=== PATIENT | female | born 1940 | race Caucasian/White ===

== ENCOUNTER 2020-01-10 12:26 | Outpatient (REF) | payer MEDICARE, SELFPAY ==
[2020-01-10 14:27] LABS: Anion Gap 13 (12-20); Blood Urea Nitrogen 13 mg/dL (9-16); Carbon Dioxide 25 mmol/L (22-29); Chloride 105 mmol/L (96-108); Estimated Glomerular Filt Rate 46; Potassium 4.7 mmol/l (3.3-5.1); Sodium 138 mmol/L (135-145)
[2020-01-10 14:44] LABS: Free T4 (Free Thyroxine) 0.92 ng/dL (0.71-1.85); Thyroid Stimulating Hormone 1.15 uIU/mL (0.32-4.0)
== END 2020-01-10 12:27 | disposition home or self-care (01) ==
LOC: HO.10HDL 12:26
PROVIDERS: Visit Provider Family Medicine
DX: E03.9 Hypothyroidism, unspecified (principal); I10 Essential (primary) hypertension
CPT/HCPCS: 80051; 82565; 84439; 84443; 84520

== ENCOUNTER 2020-01-28 16:17 | Outpatient (REF) | payer MEDICARE, SELFPAY ==
--- NOTE | 2020-01-28 16:23 | MM_ITS ---
EXAMINATION: MM SCREENING DIGITAL BREAST TOMOSYNTHESIS, BILATERAL CLINICAL INFORMATION: Screening. Asymptomatic. The lifetime risk of breast cancer based on the Tyrer-Cuzick Model is 6%. COMPARISON: Mammography: 08/03/2018, 07/20/2017, 07/16/2016 TECHNIQUE: Digital breast tomosynthesis is performed in both the craniocaudal and mediolateral oblique views along with computer-aided detection (CAD). Synthesized 2D images are generated from the tomosynthesis. FINDINGS: The breasts are heterogeneously dense, which may obscure small masses (ACR BI-RADS breast composition Category c). Breast tissue composition borders on average fibroglandular. There is fine fibronodular parenchymal pattern similar to prior studies. There is no developing density or interval mass or architectural abnormality. No abnormal calcifications. The axilla and skin contours are unremarkable. No significant changes. MM/MM tomosynthesis screening BI IMPRESSION: No significant changes from prior studies. ASSESSMENT: BI-RADS 1: Negative RECOMMENDATION: Routine annual mammography screening. This patient's information was entered into a reminder system with a target due date for their next mammogram.
== END 2020-01-28 16:18 | disposition home or self-care (01) ==
LOC: HO.MAMMO 16:17
PROVIDERS: PCP Family Medicine; Visit Provider Family Medicine
DX: Z12.31 Encounter for screening mammogram for malignant neoplasm of breast (principal)
CPT/HCPCS: 77063; 77067

== ENCOUNTER 2020-07-31 11:53 | Outpatient (REF) | payer MEDICARE, SELFPAY ==
[2020-07-31 13:49] LABS: Anion Gap 12 (12-20); Blood Urea Nitrogen 11 mg/dL (9-16); Carbon Dioxide 25 mmol/L (22-29); Chloride 109 mmol/L (96-108); Estimated Glomerular Filt Rate 50; Potassium 4.8 mmol/L (3.3-5.1); Sodium 141 mmol/L (135-145)
[2020-07-31 14:11] LABS: Free T4 (Free Thyroxine) 1.07 ng/dL (0.71-1.85)
== END 2020-07-31 11:54 | disposition home or self-care (01) ==
LOC: HO.10HDL 11:53
PROVIDERS: PCP Family Medicine; Visit Provider Family Medicine
DX: I10 Essential (primary) hypertension (principal); E03.9 Hypothyroidism, unspecified
CPT/HCPCS: 36415; 80051; 82565; 84439; 84520

== ENCOUNTER 2021-02-05 15:18 | Outpatient (REF) | payer MEDICARE, SELFPAY ==
--- NOTE | ~2021-02-05 | MM_ITS ---
EXAMINATION: MM SCREENING DIGITAL BREAST TOMOSYNTHESIS, BILATERAL CLINICAL INFORMATION: Screening. Asymptomatic. The lifetime risk of breast cancer based on the Tyrer-Cuzick Model is 4.9%. COMPARISON: Mammography: January 28, 2020 and studies dating back to December 21, 2012 TECHNIQUE: Digital breast tomosynthesis is performed in both the craniocaudal and mediolateral oblique views along with computer-aided detection (CAD). Synthesized 2D images are generated from the tomosynthesis. FINDINGS: The breasts are heterogeneously dense, which may obscure small masses (ACR BI-RADS breast composition Category c). There are no significant masses, abnormal calcifications, or other abnormalities. MM/MM tomosynthesis screening BI IMPRESSION: There are no significant changes from prior study. ASSESSMENT: BI-RADS 1: Negative RECOMMENDATION: Routine annual mammography screening. This patient's information was entered into a reminder system with a target due date for their next mammogram.
== END 2021-02-05 15:19 | disposition home or self-care (01) ==
LOC: HO.MAMMO 15:18
PROVIDERS: Visit Provider Family Medicine
DX: Z12.31 Encounter for screening mammogram for malignant neoplasm of breast (principal)
CPT/HCPCS: 77063; 77067

== ENCOUNTER 2021-02-10 11:49 | Outpatient (REF) | payer MEDICARE, SELFPAY ==
[2021-02-10 14:18] LABS: Anion Gap 13 (12-20); Blood Urea Nitrogen 13 mg/dL (9-16); Carbon Dioxide 26 mmol/L (22-29); Chloride 105 mmol/L (96-108); Estimated Glomerular Filt Rate 51; Potassium 4.5 mmol/L (3.3-5.1); Sodium 139 mmol/L (135-145)
[2021-02-10 14:42] LABS: Free T4 (Free Thyroxine) 0.96 ng/dL (0.71-1.85)
== END 2021-02-10 11:50 | disposition home or self-care (01) ==
LOC: HO.10HDL 11:49
PROVIDERS: Family Medicine; Visit Provider Student in an Organized Health Care Education/Training Program
DX: I10 Essential (primary) hypertension (principal)
CPT/HCPCS: 36415; 80051; 82565; 84439; 84520

== ENCOUNTER 2021-02-11 13:15 | Outpatient (REF) | payer MEDICARE, SELFPAY ==
--- NOTE | ~2021-02-11 | US_ITS ---
EXAMINATION: US RETROPERITONEAL COMPLETE (RENAL) CLINICAL INFORMATION: Acute right lower quadrant pain. Hematuria. COMPARISON: None TECHNIQUE: Real-time imaging of the kidneys and bladder. FINDINGS: RIGHT KIDNEY: 9.8 x 5.6 x 5.4 cm (SAG x AP x TRV). The kidney is normal in size, contour, and echogenicity. Renal cortical thickness is normal. No renal calculi or focal parenchymal lesions. There is mild to moderate hydronephrosis. No hydroureter identified. LEFT KIDNEY: 10.9 x 4.9 x 5.4 cm (SAG x AP x TRV). The kidney is normal in size, contour, and echogenicity. Renal cortical thickness is normal. No renal calculi or focal solid parenchymal lesions.. Within the upper pole laterally there is a 7 mm cyst present. BLADDER: Well distended and normal. Bilateral ureteral jets are demonstrated. Prevoid bladder volume is 226 mL. Postvoid bladder volume is 10.0 mL. US/US retroperitoneal comp IMPRESSION: Mild to moderate right hydronephrosis and mild prominence of the left upper collecting system without renal calculi identified. Bilateral ureteral jets are identified within the urinary bladder. No significant post void residual..
== END 2021-02-11 13:16 | disposition home or self-care (01) ==
LOC: HO.US 13:15
PROVIDERS: PCP Family Medicine; Visit Provider Family Medicine
DX: R10.31 Right lower quadrant pain (principal); R31.9 Hematuria, unspecified
CPT/HCPCS: 76770

== ENCOUNTER 2021-09-07 12:18 | Outpatient (REF) | payer MEDICARE, SELFPAY ==
[2021-09-07 14:35] LABS: Anion Gap 11 (12-20); Blood Urea Nitrogen 15 mg/dL (9-16); Carbon Dioxide 26 mmol/L (22-29); Chloride 107 mmol/L (96-108); Estimated Glomerular Filt Rate 48; Potassium 4.7 mmol/L (3.3-5.1); Sodium 139 mmol/L (135-145)
[2021-09-07 14:51] LABS: Free T4 (Free Thyroxine) 0.95 ng/dL (0.71-1.85)
== END 2021-09-07 12:19 | disposition home or self-care (01) ==
LOC: HO.10HDL 12:18
PROVIDERS: Visit Provider Family Medicine
DX: I10 Essential (primary) hypertension (principal); E03.9 Hypothyroidism, unspecified
CPT/HCPCS: 36415; 80051; 82565; 84439; 84520

== ENCOUNTER 2022-02-11 13:06 | Outpatient (REF) | payer MEDICARE, SELFPAY ==
--- NOTE | ~2022-02-11 | MM_ITS ---
EXAMINATION: MM SCREENING DIGITAL BREAST TOMOSYNTHESIS, BILATERAL CLINICAL INFORMATION: Screening. Asymptomatic. The lifetime risk of breast cancer based on the Tyrer-Cuzick Model is 4.5%. COMPARISON: Mammography: February 05, 2021 and studies dating back to June 25, 2015 TECHNIQUE: Digital breast tomosynthesis is performed in both the craniocaudal and mediolateral oblique views along with computer-aided detection (CAD). Synthesized 2D images are generated from the tomosynthesis. FINDINGS: The breasts are extremely dense, which lowers the sensitivity of mammography (ACR BI-RADS breast composition Category d). There are no significant masses, abnormal calcifications, or other abnormalities. MM/MM tomosynthesis screening BI IMPRESSION: No significant changes from prior exam. ASSESSMENT: BI-RADS 1: Negative RECOMMENDATION: Routine annual mammography screening. This patient's information was entered into a reminder system with a target due date for their next mammogram.
== END 2022-02-11 13:07 | disposition home or self-care (01) ==
LOC: HO.MAMMO 13:06
PROVIDERS: PCP Family Medicine; Visit Provider Family Medicine
DX: Z12.31 Encounter for screening mammogram for malignant neoplasm of breast (principal)
CPT/HCPCS: 77063; 77067

== ENCOUNTER 2022-03-26 11:35 | Outpatient (REF) | payer MEDICARE, SELFPAY ==
[2022-03-26 13:40] LABS: MANUAL DIFF FLAG NO
[2022-03-26 13:45] LABS: Basophils Absolute Auto 0.1 X10*3/uL (0.0-0.2); Basophils Percent Auto 1.4 % (0-2); Eosinophils Absolute Auto 0.1 X10*3/uL (0.0-0.4); Eosinophils Percent Auto 2.1 % (0-4); Hematocrit 41.9 % (37.0-47.0); Hemoglobin 13.6 g/dl (12.0-16.0); Imm Gran Abs Auto 0.01 X10*3/uL (0.00-0.03); Imm Gran Pct Auto 0.2 % (0.0-0.4); Lymphocytes Absolute Auto 1.4 X10*3/uL (1.2-4.9); Lymphocytes Percent Auto 26.5 % (20-40); Mean Corpuscular HGB Conc 32.5 g/dl (31.0-35.0); Mean Corpuscular Hemoglobin 28.7 pg (27.0-33.0); Mean Corpuscular Volume 88.4 fL (80.0-98.0); Mean Platelet Volume 11.7 fL (9.4-12.3); Monocytes Absolute Auto 0.6 X10*3/uL (0.1-1.2); Monocytes Percent Auto 11.7 % (2-11); Neutrophils Percent Auto 58.1 % (45-73); Platelet Count 303 X10*3/uL (160-400); Red Blood Count 4.74 X10*6/uL (4.20-5.50); Red Cell Distribution Width 12.8 % (11.0-16.0); White Blood Count 5.1 X10*3/uL (4.8-10.8)
[2022-03-26 14:32] LABS: Anion Gap 13 (12-20); Blood Urea Nitrogen 15 mg/dL (9-16); Carbon Dioxide 23 mmol/L (22-29); Chloride 109 mmol/L (96-108); Estimated Glomerular Filt Rate 49; Potassium 4.6 mmol/L (3.3-5.1); Sodium 140 mmol/L (135-145)
[2022-03-26 14:50] LABS: Free T4 (Free Thyroxine) 1.01 ng/dL (0.71-1.85)
== END 2022-03-26 11:36 | disposition home or self-care (01) ==
LOC: HO.10HDL 11:35
PROVIDERS: Visit Provider Family Medicine
DX: I10 Essential (primary) hypertension (principal); E03.9 Hypothyroidism, unspecified; R53.83 Other fatigue
CPT/HCPCS: 36415; 80051; 82565; 84439; 84520; 85025

== ENCOUNTER 2022-11-15 09:42 | Outpatient (REF) | payer MEDICARE, SELFPAY ==
[2022-11-15 11:20] LABS: Anion Gap 10 (12-20); Blood Urea Nitrogen 13 mg/dL (9-16); Carbon Dioxide 25 mmol/L (22-29); Chloride 109 mmol/L (96-108); Estimated Glomerular Filt Rate 45; Potassium 4.1 mmol/L (3.3-5.1); Sodium 140 mmol/L (135-145)
[2022-11-15 11:25] LABS: Free T4 (Free Thyroxine) 0.97 ng/dL (0.71-1.85)
== END 2022-11-15 09:43 | disposition home or self-care (01) ==
LOC: HO.10HDL 09:42
PROVIDERS: Visit Provider Family Medicine
DX: I10 Essential (primary) hypertension (principal); E03.9 Hypothyroidism, unspecified
CPT/HCPCS: 36415; 80051; 82565; 84439; 84520

== ENCOUNTER 2023-01-14 12:48 | Outpatient (REF) | payer MEDICARE, SELFPAY ==
--- NOTE | ~2023-01-14 | XR_ITS ---
EXAMINATION: XR TIBIA AND FIBULA, RIGHT CLINICAL INFORMATION: Right flank pain. COMPARISON: None available. TECHNIQUE: AP and lateral views of the right tibia and fibula were obtained. FINDINGS: Bony alignment and mineralization are normal. At the right knee, there is very mild asymmetric narrowing of the medial joint space compartment, with peripheral osteophyte formation. There is peripheral osteophyte formation of the patellofemoral compartment. No right knee joint effusion is seen. A Karen-Stieda fragment is noted adjacent to the medial femoral condyle, suggesting a remote MCL injury. The ankle mortise is intact. There is no fracture, dislocation or joint effusion. There is a tiny accessory ossification center seen adjacent to the lateral malleolus. No focal soft tissue swelling, gas or foreign body is seen. XR/XR tibia fibula RT 2V IMPRESSION: 1. 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 2. No fracture, dislocation or right knee or ankle joint effusion is noted.
== END 2023-01-14 12:49 | disposition home or self-care (01) ==
LOC: HO.XRAY 12:48
PROVIDERS: PCP Family Medicine; Visit Provider Family Medicine
DX: M79.604 Pain in right leg (principal)
CPT/HCPCS: 73590

== ENCOUNTER 2023-02-09 14:56 | Outpatient (AMB) | payer MEDICARE, SELFPAY ==
--- NOTE | 2023-02-09 15:09 | A.OFFVIS_ITS ---
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 Patient reports pain in the posterior aspect of knee that will radiate down to her leg to her ankle and bottom of her foot. Denies injury. Patient was seen by her PCP who ordered xrays and referred to orthopedics. Hx of right knee meniscus repair at [facility]. 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 She states she has pain in the posterior aspect of her knee which radiates down to ankle and bottom of her foot. Her pain is aggravated with ambulation, standing and at night when laying at bed. She was seen by her PCP who referred her to our office. She has not had any previous injury. She has a history of right knee meniscus repair at [facility]. [facility] Surgical History (Updated 02/09/23 @ 15:14 by BARBARA Kern) History of lateral meniscus repair of right knee Hx of laparoscopy Hx of eye surgery Social History (Updated 02/09/23 @ 15:13 by BARBARA Kern) Patient Tobacco Use Status: Former Tobacco user Current occupational status: unemployed Review of Systems Const All systems reviewed & are unremarkable except as noted in HPI and below Physical Exam Vital Signs: BMI result Body Mass Index 29.0 Const General: cooperative, healthy appearing, comfortable, no acute distress, well developed and alert Orientation/consciousness: patient oriented x3 HEENT Head: Yes normal to inspection, Yes normocephalic and Yes atraumatic Eyes General: appearance normal, both eyes and all related structures Resp Effort & Inspection: normal respiratory effort and able to speak in complete sentences Cardio Rate: regular rate Peripheral pulses: Peripheral pulses 2+ throughout GI Palpation (GI): Soft to palpation Skin Lesions: no lesions Rashes: no rashes Neuro General: patient oriented x3 Extrem Other: Right foot: Normal to inspection. She has some tenderness over the plantar fascia. She has no pain around the medial or lateral aspect of knee. she has full rom of knee. No pain along the calf or anterior tibia. NVI. Assessment & Plan Assessment & Plan (1) Peroneal tendonitis of right lower extremity: Code(s): M76.71 - Peroneal tendinitis, right leg (2) Plantar fasciitis of right foot: Code(s): M72.2 - Plantar fascial fibromatosis Plan She was referred to physical therapy to work on ROM, gentle strengthening and heel quad stretching along with posterior chain conditioning exercises. I did show her some exercises in the office as well and gave her a home exercises program. If symptoms do not improve she will see us back. Orders: Orders PT Evaluation and Treatment 02/09/23 M72.2 - Plantar fascial fibromatosis, M76.71 - Peroneal tendinitis, right leg Patient Instructions: Scribed for Zabrina Hodges PA-C, by Eduardo Ashby medical donation professional, on 02/09/2023 at 3:00 PM EST. I, Zabrina Hodges PA-C, have personally reviewed and agree with the information entered by the scribe. Coding Level of Care Code New Pt Level 3 (57734) Diagnoses Peroneal tendonitis of right lower extremity M76.71 Plantar fasciitis of right foot M72.2
[2023-02-09 15:12] VITALS: BMI 29.0
== END 2023-02-09 15:42 | disposition home or self-care (01) ==
PROVIDERS: PCP Family Medicine; Visit Provider Physician Assistant
DX: M76.71 Peroneal tendinitis, right leg (principal); M72.2 Plantar fascial fibromatosis
CPT/HCPCS: 99203

== ENCOUNTER → 2023-02-09 14:56 | Outpatient (BNVA) | payer MEDICARE, SELFPAY | PROVIDERS: PCP Family Medicine; Visit Provider Physician Assistant | DX: M76.71 Peroneal tendinitis, right leg (principal); M72.2 Plantar fascial fibromatosis | CPT/HCPCS: 99202 ==

== ENCOUNTER 2023-03-03 13:04 | Outpatient (REF) | payer MEDICARE, SELFPAY | END 2023-03-03 13:05 | disposition home or self-care (01) | LOC: HO.MAMMO 13:04 | PROVIDERS: PCP Family Medicine; Visit Provider Family Medicine | DX: Z12.31 Encounter for screening mammogram for malignant neoplasm of breast (principal) | CPT/HCPCS: 77063; 77067 ==

== ENCOUNTER → 2023-03-03 13:15 | Outpatient (BNV) | payer MEDICARE, SELFPAY | PROVIDERS: PCP Family Medicine; Visit Provider Radiology Diagnostic Radiology | DX: Z12.31 Encounter for screening mammogram for malignant neoplasm of breast (principal) | CPT/HCPCS: 77063; 77067 ==

== ENCOUNTER 2023-03-11 10:25 | Outpatient (REF) | payer MEDICARE, SELFPAY ==
--- NOTE | ~2023-03-11 | MM_ITS ---
EXAMINATION: MM DIAGNOSTIC DIGITAL MAMMOGRAPHY, RIGHT CLINICAL INFORMATION: Follow-up diagnostic to evaluate one view asymmetries right breast medial CC projection, and upper outer MLO projection. COMPARISON: Mammography: Screening mammography 02/11/2022. TECHNIQUE: Digital mammography is performed in the following views: Full-field 3-D right mediolateral view, 3-D spot compression right MLO and CC views. FINDINGS: The breasts are heterogeneously dense, which may obscure small masses (ACR BI-RADS breast composition Category c). Focal asymmetries do not persist on spot compression views, and are consistent with superimposition artifact related to overlapping normal fibroglandular tissues. There are no suspicious masses, suspicious grouped calcifications, or areas of architectural distortion in the right breast. The parenchymal pattern is stable from prior exams. Results are provided to the patient at time of visit by the technologist. MM/MM added views RT IMPRESSION: No persistent findings suspicious for malignancy. Recommend the patient resume annual screening mammography to include both breasts. ASSESSMENT: BI-RADS BI-RADS 1 - Negative RECOMMENDATION: 1 year F/U This patient's information was entered into a reminder system with a target due date for their next mammogram.
== END 2023-03-11 10:26 | disposition home or self-care (01) ==
LOC: HO.MAMMO 10:25
PROVIDERS: PCP Family Medicine; Visit Provider Family Medicine
DX: N64.89 Other specified disorders of breast (principal)
CPT/HCPCS: 77065

== ENCOUNTER → 2023-03-11 10:30 | Outpatient (BNV) | payer MEDICARE, SELFPAY | PROVIDERS: PCP Family Medicine; Visit Provider Radiology Diagnostic Radiology | DX: R92.8 Other abnormal and inconclusive findings on diagnostic imaging of breast (principal) | CPT/HCPCS: 77065 ==

== ENCOUNTER 2023-05-04 11:31 | Outpatient (REF) | payer MEDICARE, SELFPAY ==
[2023-05-04 14:10] LABS: Anion Gap 8 (12-20); Blood Urea Nitrogen 14 mg/dL (9-16); Carbon Dioxide 28 mmol/L (22-29); Chloride 108 mmol/L (96-108); Estimated Glomerular Filt Rate 53; Potassium 4.3 mmol/L (3.3-5.1); Sodium 140 mmol/L (135-145)
[2023-05-05 09:15] LABS: Free T4 (Free Thyroxine) 0.91 ng/dL (0.71-1.85)
== END 2023-05-04 11:32 | disposition home or self-care (01) ==
LOC: HO.10HDL 11:31
PROVIDERS: Visit Provider Family Medicine
DX: I10 Essential (primary) hypertension (principal); E03.9 Hypothyroidism, unspecified
CPT/HCPCS: 36415; 80051; 82565; 82746; 84439; 84443; 84520

== ENCOUNTER 2023-12-06 10:20 | Outpatient (REF) | payer MEDICARE, SELFPAY ==
[2023-12-06 11:34] LABS: Alanine Aminotransferase 23 U/L (0-31); Anion Gap 10 (12-20); Aspartate Amino Transferase 20 U/L (5-31); Blood Urea Nitrogen 14 mg/dL (9-16); Carbon Dioxide 28 mmol/L (22-29); Chloride 109 mmol/L (96-108); Estimated Glomerular Filt Rate 48; Potassium 4.2 mmol/L (3.3-5.1); Sodium 143 mmol/L (135-145)
== END 2023-12-06 10:21 | disposition home or self-care (01) ==
LOC: HO.10HDL 10:20
PROVIDERS: Visit Provider Family Medicine
DX: I10 Essential (primary) hypertension (principal); E78.00 Pure hypercholesterolemia, unspecified; Z79.899 Other long term (current) drug therapy
CPT/HCPCS: 36415; 80051; 82550; 82565; 84450; 84460; 84520

== ENCOUNTER 2024-03-08 14:24 | Outpatient (REF) | payer MEDICARE, SELFPAY ==
--- NOTE | ~2024-03-08 | MM_ITS ---
EXAMINATION: MM SCREENING DIGITAL BREAST TOMOSYNTHESIS, BILATERAL CLINICAL INFORMATION: Screening. Asymptomatic. COMPARISON: Mammography: Comparison is made with available priors TECHNIQUE: Digital breast mammography with tomosynthesis is performed in both the craniocaudal and mediolateral oblique views along with computer-aided detection (CAD). FINDINGS: The breasts are heterogeneously dense, which may obscure small masses (ACR BI-RADS breast composition Category c). Left: Asymmetry superior breast middle depth on MLO view. No suspicious calcifications or other abnormal findings. Right: Asymmetry superior breast posterior depth on MLO view incompletely evaluated on today's MLO view. No suspicious calcifications or abnormal findings. MM/MM tomosynthesis screening BI IMPRESSION: Left: Asymmetry in the superior left breast on MLO view. Additional imaging and ultrasound recommended at this time. Right: Asymmetry superior breast far posterior depth incompletely evaluated on today's MLO view. Recommend full field additional MLO view with naomi synthesis and X CCL full field view with naomi synthesis for further evaluation as well as right breast ultrasound. ASSESSMENT: BI-RADS BI-RADS 0 - Incomplete: Needs additional Imaging. RECOMMENDATION: 1. Additional views of the bilateral breasts 2. Targeted ultrasound if warranted after review of the additional views. 3. Radiology department staff will contact the patient for additional imaging. Additional Imaging required This examination should not preclude the clinical evaluation of a suspicious palpable abnormality. This patient's information was entered into a reminder system with a target due date for their next mammogram. Electronically signed by: Aurora Isaacs DO 03/14/2024 08:28 AM [facility]
== END 2024-03-08 14:25 | disposition home or self-care (01) ==
LOC: HO.MAMMO 14:24
PROVIDERS: PCP Family Medicine; Visit Provider Family Medicine
DX: Z12.31 Encounter for screening mammogram for malignant neoplasm of breast (principal)
CPT/HCPCS: 77063; 77067

== ENCOUNTER → 2024-03-08 14:45 | Outpatient (BNV) | payer MEDICARE, SELFPAY | PROVIDERS: PCP Family Medicine; Visit Provider Internal Medicine | DX: Z12.31 Encounter for screening mammogram for malignant neoplasm of breast (principal) | CPT/HCPCS: 77063; 77067 ==

== ENCOUNTER 2024-04-19 11:41 | Outpatient (REF) | payer MEDICARE, SELFPAY ==
--- NOTE | ~2024-04-19 | MM_ITS ---
EXAMINATION: MM DIAGNOSTIC DIGITAL BREAST TOMOSYNTHESIS, BILATERAL Bilateral Limited ultrasound. CLINICAL INFORMATION: Call back from screening for bilateral asymmetries. COMPARISON: Mammography: Comparison is made with relevant prior exams. TECHNIQUE: Digital breast mammography with tomosynthesis is performed in both the craniocaudal and mediolateral oblique views along with computer-aided detection (CAD). Bilateral Limited ultrasound. FINDINGS: There are scattered areas of fibroglandular density (ACR BI-RADS breast composition Category b). Left: Previously seen asymmetry in the superior left breast on MLO view does not persist on additional imaging projections. No suspicious calcifications or masses or other abnormal findings. Targeted color Doppler ultrasound scanning in the superior left breast upper outer quadrant and upper central breast demonstrates normal fibroglandular breast tissue. Right: There is a persistent mass with questioned distortion in the upper outer breast far posterior depth. No suspicious calcifications or other abnormal findings. Targeted color Doppler ultrasound scanning in the upper outer quadrant from 8-12 o'clock demonstrates normal fibroglandular breast tissue. Results are provided to the patient at time of visit by the technologist. MM/MM tomosynthesis added view BI IMPRESSION: Left: Negative. Right: Persistent mass in the upper outer right breast far posterior depth with questioned distortion without sonographic correlate. Recommend stereotactic core needle biopsy at this time for confirmation. The findings and recommendations were discussed with the patient the procedure will be scheduled. ASSESSMENT: BI-RADS BI-RADS 4 - Suspicious finding RECOMMENDATION: Biopsy recommended This patient's information was entered into a reminder system with a target due date for their next mammogram. Electronically signed by: Aurora Isaacs DO 04/19/2024 01:41 PM [facility]
== END 2024-04-19 11:42 | disposition home or self-care (01) ==
LOC: HO.MAMMO 11:41
PROVIDERS: PCP Physician Assistant; Visit Provider Family Medicine
DX: N64.89 Other specified disorders of breast (principal)
CPT/HCPCS: 76642; 77062; 77066

== ENCOUNTER → 2024-04-19 12:00 | Outpatient (BNV) | payer MEDICARE, SELFPAY | PROVIDERS: PCP Physician Assistant; Visit Provider Internal Medicine | DX: R92.8 Other abnormal and inconclusive findings on diagnostic imaging of breast (principal) | CPT/HCPCS: 76642; 77066; G0279 ==

== ENCOUNTER 2024-05-17 09:47 | Outpatient (REF) | payer MEDICARE, SELFPAY ==
--- NOTE | ~2024-05-17 | MM_ITS ---
EXAMINATION: STEREOTACTICALLY-GUIDED RIGHT BREAST BIOPSY CLINICAL INFORMATION: Irregular focal asymmetry with distortion in the upper outer right breast posterior depth. COMPARISON: [facility] on PACS. INFORMED CONSENT: After the details of the procedure, as well as the risks (including, but not limited to, bleeding, hematoma formation, and infection), benefits and alternatives (including doing nothing, short-interval follow up, and surgery) to the procedure were explained to the patient in detail and all of her questions were answered, informed written consent was obtained. TECHNIQUE/FINDINGS: A timeout was performed. The lesion intended for biopsy was identified stereotactically and targeted. The skin of the right breast was then cleansed with sterile solution. Using stereotactic guidance, aseptic technique, and 1% lidocaine with and without epinephrine for local anesthesia, a total of 10 cores were obtained through the targeted area with a 9-gauge vacuum-assisted Eviva core biopsy device from a superior approach. No specimen radiograph was needed. At the completion of tissue sampling, a single mini Cork-shaped metallic clip was deposited at the biopsy site. Adequate sampling was achieved. The postprocedure 2-view direct digital mammogram reveals satisfactory positioning of the biopsy clip. The patient tolerated the procedure well and, after assuring adequate hemostasis, was discharged in good condition after reviewing postbiopsy breast care instructions. Final pathology results are pending. MM/MM stereotactic biopsy RT IMPRESSION: 1. Uncomplicated stereotactically-guided core biopsy of the right breast. The 2-view direct digital postprocedure mammogram reveals satisfactory positioning of the biopsy clip. 2. Final pathology results are pending. A separate report with final recommendations will be issued once these results are made available. Electronically signed by: Aurora Isaacs DO 05/17/2024 12:39 PM EDT
[2024-05-17] MEDS: Lidocaine HCl 1 % 20 ML VIAL 5 ML SUBCUT (11:56)
[2024-05-17] MEDS: Lidocaine HCl 1%/Epi 1:100,000 10 ML VIAL 18 ML SUBCUT (11:57)
[2024-05-17] MEDS: Sodium Bicarbonate 8.4% 50 MEQ/50 ML VIAL SUBCUT (11:58)
== END 2024-05-17 09:48 | disposition home or self-care (01) ==
LOC: HO.MAMMO 09:47
PROVIDERS: PCP Family Medicine; Visit Provider Family Medicine
DX: C50.911 Malignant neoplasm of unspecified site of right female breast (principal); R92.8 Other abnormal and inconclusive findings on diagnostic imaging of breast; N64.89 Other specified disorders of breast
CPT/HCPCS: 19081; 88305; 88342; 88360; A4648; J2003; J2004

== ENCOUNTER → 2024-05-17 10:00 | Outpatient (BNV) | payer MEDICARE, SELFPAY | PROVIDERS: PCP Family Medicine; Visit Provider Internal Medicine | DX: N63.11 Unspecified lump in the right breast, upper outer quadrant (principal) | CPT/HCPCS: 19081; 77065 ==

== ENCOUNTER → 2024-06-01 13:02 | Outpatient (BNV) | payer MEDICARE, SELFPAY | PROVIDERS: PCP Family Medicine; Referring Provider Family Medicine; Visit Provider Internal Medicine Medical Oncology | DX: C50.411 Malignant neoplasm of upper-outer quadrant of right female breast (principal) | CPT/HCPCS: 99204 ==

== ENCOUNTER 2024-06-07 10:27 | Outpatient (AMB) | payer MEDICARE, SELFPAY ==
--- NOTE | 2024-06-07 10:37 | A.OFFVIS_ITS ---
Vital Signs 06/07/24 10:45 Height 5 ft 7 in Weight 187 lb BMI 29.3 BP 189/84 H Blood Pressure Location Lt brachial Position Sitting Pulse 82 Intake Visit Reasons: right breast CA (Dr Eldridge) Intake Note: Patient is seen in office for treatment of right breast IDC. 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 She was noted to have a asymmetry in the right breast at the superior posterior depth on the initial screening mammogram performed on 03/08/2024. Subsequent additional images performed on 04/19/2024 noted a persistent mass with questioned distortion in the upper outer breast. This was felt to be suspicious for malignancy and stereotactic core biopsy recommended. A stereotactic core biopsy performed on 05/17/2024 was positive for an invasive ductal carcinoma, grade 1, ER/AR positive, HER2 Aryan negative, proliferation index low. She presents today to discuss surgical options. She denies a previous history of breast problems or breast surgery. Her family history is significant for her mother developing breast cancer when she was in her 50s. She underwent a radical mastectomy but subsequently of metastatic disease. She is . Menarche was at age 17 and menopause at age 52. [facility] Surgical History History of lateral meniscus repair of right knee Hx of laparoscopy Hx of eye surgery Family History Mother Breast cancer, Onset Age: 55 Bone cancer Father Colon cancer Cirrhosis of liver Brother Lung cancer Skin cancer Social History Household Members: Friend(s) Housing: House Are you a primary customer care assistant to a significant other at home: Yes Do you presently have visiting nurse or other home services: No Patient Tobacco Use Status: Former Tobacco user Second Hand Smoke Exposure: No service: No Current occupational status: retired Female Reproductive History Menstrual Age of Menarche: 17 Age of menopause: 52 Total pregnancies: 0 Review of Systems Const All systems reviewed & are unremarkable except as noted in HPI and below Physical Exam Vital Signs: Last Vital Signs Pulse 82 06/07/24 10:45 BP 189/84 H 06/07/24 10:45 BMI result Body Mass Index 29.3 Const General: cooperative and no acute distress Nutritional Appearance: well nourished Orientation/consciousness: patient oriented x3 Limitations: no limitations HEENT Head: Yes normocephalic and Yes atraumatic Ears: hearing grossly normal bilaterally Chest Other: Left breast: No skin change, no nipple retraction, no nipple discharge, no palpable mass, no enlarged lymph nodes. Right breast: No skin change, no nipple retraction, no nipple discharge, faintly palpable density in the upper outer quadrant with the associated needle biopsy site, tender palpable node in the right axilla Resp Effort & Inspection: normal respiratory effort, no audible wheezes, no cough and no respiratory distress Cardio Jugular venous distension: no JVD GI Inspection: Yes normal to inspection Skin Other: Warm, dry, no rash Neuro General: patient oriented x3 Extrem General: Yes no clubbing, cyanosis or edema Assessment & Plan Assessment & Plan (1) Invasive ductal carcinoma of right breast: Code(s): C50.911 - Malignant neoplasm of unspecified site of right female breast Category: Medical Plan 84-year-old female patient presenting with a newly diagnosed invasive ductal carcinoma of the upper outer quadrant right breast presenting status post stereotactic guided core biopsy. Examination does reveal some faint density in the upper outer quadrant which may be related to the previous biopsy. There is also a palpable tender node in the right axilla, possibly reactive. We discussed the surgical options. Based on the mammographic findings, I do believe she would be a good candidate for breast conservation surgery and after discussion of the procedure, risks and alternatives, she consents to a right breast lumpectomy with localizer, right axillary sentinel node biopsy. She will be scheduled as a short-stay surgery. Coding Level of Care Code New Pt Level 4 (12478) Diagnoses Invasive ductal carcinoma of right breast C50.911
[2024-06-07 10:45] VITALS: BP 189/84; PULSE 82; BMI 29.3
== END 2024-06-07 11:04 | disposition home or self-care (01) ==
LOC: HO.HGS 10:28
PROVIDERS: PCP Family Medicine; Visit Provider Surgery
DX: C50.911 Malignant neoplasm of unspecified site of right female breast (principal)
CPT/HCPCS: 99204

== ENCOUNTER → 2024-06-07 10:27 | Outpatient (BNVA) | payer MEDICARE, SELFPAY | PROVIDERS: PCP Family Medicine; Visit Provider Surgery | DX: C50.411 Malignant neoplasm of upper-outer quadrant of right female breast (principal) | CPT/HCPCS: 99202 ==

== ENCOUNTER 2024-06-14 09:58 | Outpatient (REF) | payer MEDICARE, SELFPAY ==
--- NOTE | ~2024-06-14 | MM_ITS ---
EXAMINATION: MM MAMMOGRAM GUIDED RFID LOCALIZATION BREAST, RIGHT CLINICAL INFORMATION: Right breast recently biopsied invasive ductal carcinoma Here for tag localization. COMPARISON: [facility] on PACS. TECHNIQUE NEEDLE LOC: Proper informed consent is obtained from the patient after discussion of the procedure, potential risks and complications, and alternatives including declining the procedure today. Patient was given an opportunity for questions. The patient appeared to understand. The patient consented to the procedure and signed the consent form. GUIDANCE: Digital mammography. APPROACH: Superior. TARGET: Upper outer clip. ANESTHESIA: carbonated lidocaine 1%: LOCALIZATION SYSTEM: [employer] LOCallizer Wire-Free Guidance System with 12g needle applicator. RADIOFREQUENCY TAG: ID # [id number] . RF Tag ID confirmed with LOCalizer Guidance System prior to placement. The skin is prepped and local anesthesia administered. The needle is positioned and RFID tag deployed. Final images demonstrate the LOCalizer RF tag to reside adjacent to the marker clip in the upper outer breast. The patient tolerated the procedure well and had no immediate complications. Dressing placed and home instructions reviewed. MM/MM RF Tag device RT IMPRESSION: -Status post right breast RFID localization. Electronically signed by: Aurora Isaacs DO 06/14/2024 02:31 PM EDT
[2024-06-14] MEDS: Sodium Bicarbonate 8.4% 50 MEQ/50 ML VIAL SUBCUT (11:10)
[2024-06-14] MEDS: Lidocaine HCl 1 % 20 ML VIAL 8 ML SUBCUT (11:11)
== END 2024-06-14 09:59 | disposition home or self-care (01) ==
LOC: HO.MAMMO 09:58
PROVIDERS: PCP Family Medicine; Visit Provider Surgery
DX: C50.911 Malignant neoplasm of unspecified site of right female breast (principal)
CPT/HCPCS: 19281; C1819; J2003

== ENCOUNTER → 2024-06-14 10:00 | Outpatient (BNV) | payer MEDICARE, SELFPAY | PROVIDERS: PCP Family Medicine; Visit Provider Internal Medicine | DX: D05.01 Lobular carcinoma in situ of right breast (principal) | CPT/HCPCS: 19281 ==

== ENCOUNTER 2024-06-19 11:27 | Outpatient (REF) | payer MEDICARE, SELFPAY ==
[2024-06-19 14:20] LABS: Alanine Aminotransferase 30 U/L (0-31); Anion Gap 11 (12-20); Aspartate Amino Transferase 25 U/L (5-31); Blood Urea Nitrogen 16 mg/dL (9-16); Carbon Dioxide 26 mmol/L (22-29); Chloride 108 mmol/L (96-108); Estimated Glomerular Filt Rate 53; Potassium 4.4 mmol/L (3.3-5.1); Sodium 141 mmol/L (135-145)
[2024-06-19 14:35] LABS: Free T4 (Free Thyroxine) 0.98 ng/dL (0.71-1.85)
== END 2024-06-19 11:28 | disposition home or self-care (01) ==
LOC: HO.10HDL 11:27
PROVIDERS: Visit Provider Family Medicine
DX: I10 Essential (primary) hypertension (principal); E03.9 Hypothyroidism, unspecified; E78.00 Pure hypercholesterolemia, unspecified; Z79.899 Other long term (current) drug therapy
CPT/HCPCS: 36415; 80051; 82550; 82565; 84439; 84450; 84460; 84520

== ENCOUNTER 2024-06-20 14:48 | Outpatient (REF) | payer MEDICARE, SELFPAY ==
--- NOTE | ~2024-06-20 | MM_ITS ---
EXAMINATION: DXA BONE DENSITY AXIAL HISTORY: Osteopenia TECHNIQUE: MedShape Dual energy absorptiometry (DEXA) of the lumbar spine, total left hip, and femoral neck was performed. COMPARISON: There are no prior studies for comparison. FINDINGS: The bone mineral density of the lumbar spine is 1.293 with a T-score of 1.0, and a Z-score of 2.3. This is indicative of normal bone mineral density. The bone mineral density of the left total hip is 0.857 with a T-score of -1.2, and a Z-score of 0.5. This is indicative of osteopenia. The bone mineral density of the left femoral neck is 0.776 with a T-score of -1.9, and a Z-score of 0.0. This is indicative of osteopenia. FRACTURE RISK: The FRAX index suggests a risk of major osteoporotic fracture of 21.5%, and of hip fracture 2.8%. MM/XR DEXA axial skeleton IMPRESSION: Based on bone mineral density, and according to World Health Organization (WHO) criteria, the diagnosis is consistent with osteopenia. All bone density values are in grams per centimeter squared (g/cm2). Statistically, 68% of repeat scans fall within 1 SD (+/- 0.010 g/cm2 for AP spine L1-L4) and 1 SD (+/- 0.012 g/cm2 for femur total) FRAX is a trademark of the [employer]'s [employer], a World Health Organization (WHO) Collaborating Center. Electronically signed by: Adrian Burnett MD 06/22/2024 07:43 AM EDT
== END 2024-06-20 14:49 | disposition home or self-care (01) ==
LOC: HO.MAMMO 14:48
PROVIDERS: PCP Family Medicine; Visit Provider Internal Medicine Medical Oncology
DX: Z13.820 Encounter for screening for osteoporosis (principal); M85.80 Other specified disorders of bone density and structure, unspecified site; E28.39 Other primary ovarian failure
CPT/HCPCS: 77080

== ENCOUNTER → 2024-06-20 15:00 | Outpatient (BNV) | payer MEDICARE, SELFPAY | PROVIDERS: PCP Family Medicine; Visit Provider Radiology Diagnostic Radiology | DX: E28.39 Other primary ovarian failure (principal) | CPT/HCPCS: 77080 ==

== ENCOUNTER 2024-06-25 06:22 | Day surgery (SDC) | payer MEDICARE, SELFPAY ==
[2024-06-21 11:19] VITALS: BMI 29.0
--- NOTE | 2024-06-22 10:10 | HO.ANESPROP2 ---
Documented by User: Soumya Ferro NP 06/22/24 10:11 HPI - Anesthesia Eval Consult details Narrative: 84yo F for Right Breast Lumpectomy w/LOCalizer, Right Axillary Node Dissec w Sentinal Node Bx PMFSH Active Problems Active Problems: All Active Problems Invasive ductal carcinoma of right breast (Acute) Breast cancer, right breast (Acute) Plantar fasciitis of right foot (Acute) Peroneal tendonitis of right lower extremity (Acute) Past Medical History Medical History Essential (primary) hypertension Hypothyroidism, unspecified Gastro-esophageal reflux disease without esophagitis Benign paroxysmal vertigo, bilateral Ventricular premature depolarization Unspecified osteoarthritis, unspecified site Tinea corporis Dorsalgia, unspecified Pure hypercholesterolemia, unspecified Family History Family History Mother Breast cancer, Onset Age: 55 Bone cancer Father Colon cancer Cirrhosis of liver Brother Lung cancer Skin cancer Surgical History Surgical History Hx laparoscopic cholecystectomy H/O colonoscopy Hx of breast biopsy History of lateral meniscus repair of right knee Hx of eye surgery Social History Social History Household Members: Friend(s) Housing: House Are you a primary vehicle care specialist to a significant other at home: No Do you presently have visiting nurse or other home services: No Patient Tobacco Use Status: Former Tobacco user Tobacco use type: Cigarette Second Hand Smoke Exposure: No Use of substances other than those prescribed or required for medical reasons: No Have you been hit, kicked, punched, or otherwise hurt by someone within the past year? If so, by whom?: No Spiritual Healthcare Practices: no Episcopalian Healthcare Practices: no Cultural Healthcare Practices: no Are you DNR?: No Advance Directives: Yes (has HCP & MOLST (full code)) Advance Directives Information Provided: Yes Advance Directives on File: Yes Advance Directives Date on File: 12/28/18 FDLMP: n/a Poor oral hygiene: No service: No Current occupational status: retired Meds Allergies Allergy/AdvReac Type Severity Reaction Status Date / Time No Known Allergies Allergy Verified 06/25/24 07:03 Home Medications ?Medication ?Instructions ?Recorded ?Confirmed ?Last Taken ?Type cimetidine 300 mg tablet 300 mg PO DAILY 02/09/23 06/21/24 Unknown History levothyroxine 88 mcg tablet 88 mcg PO DAILY 02/09/23 06/21/24 Unknown History lisinopril 5 mg tablet 5 mg PO DAILY 02/09/23 06/21/24 Unknown History Exam Height,Weight and Vital Signs: Height 5 ft 7 in Weight 83.915 kg Pertinent Lab Results Pertinent Lab Results: Laboratory Tests 06/01/24 06/19/24 14:39 11:34 WBC 5.9 Hgb 13.7 Hct 41.0 Plt Count 300 Sodium 141 Potassium 4.4 Chloride 108 Carbon Dioxide 26 BUN 16 Creatinine 1.00 Assessment and Plan Assessment Anesthesia Assessment: Chart Reviewed Documented by User: Magda Calles MD 06/25/24 09:12 [facility] Past Medical History Medical History Essential (primary) hypertension Hypothyroidism, unspecified Gastro-esophageal reflux disease without esophagitis Benign paroxysmal vertigo, bilateral Ventricular premature depolarization Unspecified osteoarthritis, unspecified site Tinea corporis Dorsalgia, unspecified Pure hypercholesterolemia, unspecified Family History Family History Mother Breast cancer, Onset Age: 55 Bone cancer Father Colon cancer Cirrhosis of liver Brother Lung cancer Skin cancer Surgical History Surgical History Hx laparoscopic cholecystectomy H/O colonoscopy Hx of breast biopsy History of lateral meniscus repair of right knee Hx of eye surgery History of Problems with Anesthesia: No Social History Social History Household Members: Friend(s) Housing: House Are you a primary vehicle care specialist to a significant other at home: No Do you presently have visiting nurse or other home services: No Patient Tobacco Use Status: Former Tobacco user Tobacco use type: Cigarette Second Hand Smoke Exposure: No Use of substances other than those prescribed or required for medical reasons: No Have you been hit, kicked, punched, or otherwise hurt by someone within the past year? If so, by whom?: No Spiritual Healthcare Practices: no Episcopalian Healthcare Practices: no Cultural Healthcare Practices: no Are you DNR?: No Advance Directives: Yes (has HCP & MOLST (full code)) Advance Directives Information Provided: Yes Advance Directives on File: Yes Advance Directives Date on File: 12/28/18 FDLMP: n/a Poor oral hygiene: No service: No Current occupational status: retired [email or web address] Allergies Allergy/AdvReac Type Severity Reaction Status Date / Time No Known Allergies Allergy Verified 06/25/24 07:03 Home Medications ?Medication ?Instructions ?Recorded ?Confirmed ?Last Taken ?Type cimetidine 300 mg tablet 300 mg PO DAILY 02/09/23 06/21/24 Unknown History levothyroxine 88 mcg tablet 88 mcg PO DAILY 02/09/23 06/21/24 Unknown History lisinopril 5 mg tablet 5 mg PO DAILY 02/09/23 06/21/24 Unknown History Exam Airway Mallampati Class: II TM Dist: >3cm Neck ROM: Full Partial: Upper Loose/Missing/Broken Teeth: Yes and Upper Heart: RRR Lungs: CTA Assessment and Plan Assessment Anesthesia Assessment: Anesthesia Plan Discussed Final Anesthetic Review History of Problems with Anesthesia: No NPO: Yes ASA Class: II Final Preanesthetic Review: Meds/Allgs Chart Reviewed, Consent Obtained/Reviewed and Anes Risks/Benef Reviewed Patient Risk: Low Procedure Risk: Low Anesthetic Plan Anesthetic Plan: GA Disposition: Standard PACU
--- NOTE | ~2024-06-25 | MM_ITS ---
Single right breast specimen radiograph demonstrates the tag and the marker clip within the specimen. Electronically signed by: Aurora Isaacs DO 06/25/2024 10:53 AM EDT
--- NOTE | ~2024-06-25 | NM_ITS ---
EXAMINATION: Nuclear medicine sentinel node right breast. CLINICAL INDICATION: Right breast invasive ductal carcinoma. COMPARISON: Right breast cyst or direct biopsy 05/17/2024 TECHNIQUE: Right breast sentinel node examination was explained by the referring physician in written consent was obtained. 4% lidocaine jelly cream was applied around the right breast areola 4:30 minutes. The area was then cleaned and draped in usual sterile manner. 0.125 mCi of 99m technetium tilmanocept in 4 equal doses was injected in 4 quadrants around the right breast areola and imaging obtained 30 minutes later. Patient targeted procedure extremely well. FINDINGS: On 30 minutes imaging post injection there is 2 axillary lymph nodes visualized. Adequate activity seen in the 4 quadrants around the right breast areola. No abnormal activity seen along the intramammary lymph nodes on the right neck lymph nodes. NM/NM sentinel node w imaging IMPRESSION: 2 solitary lymph nodes visualized in right anterior axilla on right breast lymphoscintigraphy. Electronically signed by: Iglesia Hopper MD 06/25/2024 04:49 PM EDT
[2024-06-25 07:05] VITALS: BMI 29.0
[2024-06-25 07:20] VITALS: BP 150/67; PULSE 70; RESP 16; TEMP 36.8; O2SAT 97
--- NOTE | 2024-06-25 07:27 | MHC.SHP ---
Pre-Procedural Eval Section A - 24 Hr Update-Section A only Date of Service: 06/25/24 The patient is an INPATIENT: No Changes since office visit: Yes Patient answered all questions; No Cold of Flu in the past 2 weeks, No New Medical Problems and No Changes in Medication The patient has been examined within 24 hours of the surgical procedure. The History & Physical has been completed within 30 days and I have reviewed it.: Yes Section B - Complete if H&P > 30 days Chief Complaint: Malignant neoplasm of unspecified site of right fe Allergies: Allergies Allergy/AdvReac Type Severity Reaction Status Date / Time No Known Allergies Allergy Verified 06/25/24 07:03 Plan Diagnosis/Plan: Unchanged I have reviewed the history and physical and performed a pertinent physical examination on my patient. No changes have occurred unless specified. Time Spent With Patient Time: Total time managing care of this patient today ____ minutes.
[2024-06-25] MEDS: ceFAZolin Sodium/Dextrose,Iso 2 GM/50 ML PIGGYBACK IV (09:55)
--- NOTE | 2024-06-25 11:30 | P.OP_ITS ---
Operative Note Operative Note Date of Service: 06/25/24 Narrative: Preoperative diagnosis: Invasive ductal carcinoma right breast Postoperative diagnosis: Same Procedure: Right breast lumpectomy with localizer, right axillary sentinel node biopsy Surgeon: Dante Benton MD Correction Officer Reformatory: Tj Alexandra PA-C Anesthesia: General LMA Indications for procedure: 84-year-old female patient presenting with a architectural distortion in the upper outer quadrant right breast. Ultrasound- guided core biopsy revealed invasive ductal carcinoma. She presents today for lumpectomy with localizer, right axillary sentinel node biopsy. Operative findings: Localizing clip and biopsy clip within the specimen. Gross pathology revealed negative margins Specimen: Right breast lumpectomy, right sentinel node X 2 Estimated blood loss: 25 mL Complications: None Procedure details: Patient was brought to the OR and placed in a supine position. After administering general anesthesia the patient's right breast was prepped with ChloraPrep and draped in a sterile fashion. A surgical time-out was called the consent confirmed. Patient received preoperative antibiotics and Venodyne boots were in place. LOCalizer device was used to identify the area of activity however no activity of consistent value was identified. A 2nd localizing device was obtained from the [facility] and once again no consistent signal was identified from the radiofrequency tag. Palpation of the breast and review of the mammogram x-rays was able to palpate an area of increased density corresponding to a possible tumor. A curvilinear incision was made in the upper outer quadrant and carried out through subcutaneous tissue. Superior and inferior skin flaps were then created. Using the palpable tumor as a guide a core of tissue surrounding this was obtained. The lesion was passed off the table and marked with a long suture on the lateral margin, short suture on the superior margin, and looped suture in the deep margin. Specimen x-ray confirmed the localizing clip and marking clip within the specimen. The specimen was sent to pathology for further examination. Gross pathology revealed adequate margins. Attention was then directed to the axilla. Using a gamma probe an area of inc reased activity was noted in the superficial anterior axilla. Gentle dissection into this area revealed increased activity was grasped with a Allis clamp. A small sentinel node was identified in this location and excised. This was labeled as sentinel node 1. In the posterior superficial axilla a 2nd node identified with slightly higher radioactive counts. This was grasped with an Allis clamp and then excised using electrocautery. This was sent as sentinel node 2. No further sentinel nodes or palpable nodes could be identified within the axilla. Wounds were then irrigated with saline solution and suctioned dry. Please note that this was done through the same breast incision. Once confirmation that adequate breast specimen was obtained the wounds were irrigated with saline solution checked for hemostasis. Biopsy cavity was marked with hemoclips. Deep breast tissue was reapproximated using interrupted 3-0 Polysorb sutures. Superficial breast tissue was reapproximated using in terrupted 3-0 Polysorb sutures. Dermis was reapproximated using interrupted 3-0 Polysorb sutures. Skin was then closed using a running subcuticular 4-0 Polysorb suture. Sterile dressings consisting of Steri-Strips, 4 x 4 gauze and Tegaderm were then applied. The patient tolerated the procedure well. Sponge, instrument, and needle counts reported as correct. The patient was transferred to PACU in stable condition.
--- NOTE | 2024-06-25 11:37 | W.PM.OPN ---
Operative Note Operative Note Date of Service: 06/25/24 Breast [place] Node Biopsy Substrate(s) used for sentinel node biopsy in the non-neoadjuvant setting: Radiotracer Substrate(s) used for sentinel node biopsy in the neoadjuvant setting: N/A All colored nodes or non-colored nodes present at the end of a dye filled lymphatic channel were removed, if dye was used as the substrate for localization: N/A All significantly radioactive nodes were removed, if radionuclide was used as the substrate for localization: Yes All palpably suspicious nodes were removed, if present: Yes If clips were placed in pathology-involved nodes, those nodes were identified and removed: N/A Procedure performed with curative intent?: Yes General Surg. - Synoptic Notes Breast [place] Node Biopsy Substrate(s) used for sentinel node biopsy in the non-neoadjuvant setting: Radiotracer Substrate(s) used for sentinel node biopsy in the neoadjuvant setting: N/A All colored nodes or non-colored nodes present at the end of a dye filled lymphatic channel were removed, if dye was used as the substrate for localization: N/A All significantly radioactive nodes were removed, if radionuclide was used as the substrate for localization: Yes All palpably suspicious nodes were removed, if present: Yes If clips were placed in pathology-involved nodes, those nodes were identified and removed: N/A Procedure performed with curative intent?: Yes
[2024-06-25 11:48] VITALS: BP 130/56; PULSE 92; RESP 18; TEMP 36.4; O2SAT 98
[2024-06-25 11:50] VITALS: BP 131/61; PULSE 89; RESP 18; O2SAT 95
[2024-06-25 11:55] VITALS: BP 134/67; PULSE 92; RESP 18; O2SAT 95
[2024-06-25 12:00] VITALS: BP 148/69; PULSE 86; RESP 18; O2SAT 95
[2024-06-25 12:15] VITALS: BP 142/71; PULSE 81; RESP 18; TEMP 36.4; O2SAT 95
== END 2024-06-25 12:58 | disposition home or self-care (01) ==
PROVIDERS: PCP Internal Medicine; Visit Provider Surgery
PROC: (CPT 19301; principal; 2024-06-25 10:30)
PROC: (CPT 38525; 2024-06-25 10:30)
DX: C50.411 Malignant neoplasm of upper-outer quadrant of right female breast (principal); Z17.0 Estrogen receptor positive status [ER+]; Z17.21 Progesterone receptor positive status; Z17.32 Human epidermal growth factor receptor 2 negative status; Z80.3 Family history of malignant neoplasm of breast; I10 Essential (primary) hypertension; I49.3 Ventricular premature depolarization; E78.00 Pure hypercholesterolemia, unspecified; E03.9 Hypothyroidism, unspecified; H81.13 Benign paroxysmal vertigo, bilateral; M54.9 Dorsalgia, unspecified; M19.90 Unspecified osteoarthritis, unspecified site; K21.9 Gastro-esophageal reflux disease without esophagitis; Z79.899 Other long term (current) drug therapy; Z98.890 Other specified postprocedural states; Z87.891 Personal history of nicotine dependence
CPT/HCPCS: 19301; 38525; 38900; 78195; 88307; 88329; 88342; A9520; C1889; J0690; J2003; J2704; J2795; J3010

== ENCOUNTER → 2024-06-25 06:22 | Outpatient (BNV) | payer MEDICARE, SELFPAY | PROVIDERS: PCP Internal Medicine; Visit Provider Surgery | DX: C50.411 Malignant neoplasm of upper-outer quadrant of right female breast (principal) | CPT/HCPCS: 19301; 38525; 38900 ==

== ENCOUNTER → 2024-06-25 08:16 | Outpatient (BNV) | payer MEDICARE, SELFPAY | PROVIDERS: PCP Internal Medicine; Visit Provider Radiology Diagnostic Radiology | DX: C50.111 Malignant neoplasm of central portion of right female breast (principal); R59.0 Localized enlarged lymph nodes | CPT/HCPCS: 78195 ==

== ENCOUNTER 2024-07-06 11:38 | Outpatient (AMB) | payer MEDICARE, SELFPAY ==
--- NOTE | 2024-07-06 11:44 | MHC.OFFVIS ---
Vital Signs 07/06/24 11:54 Height 5 ft 7 in Weight 188 lb BMI 29.4 BP 141/66 H Blood Pressure Location Lt brachial Position Sitting Pulse 81 Intake Visit Reasons: S/P Rt. brst lump. w/RFID & Rt. axillary SN bx Intake Note: Patient is seen in office for post op assessment post right breast lumpectomy. Pt c/o: denies any concenrs surgery:06/25/24 Central Office Technician Required: No Accompanied by: Self / Same As Patient Allergies No Known Allergies Allergy (Verified 06/28/24 09:37) Medication List - Last Reconciled 07/06/24 by Dante Benton MD cimetidine 300 mg PO DAILY levothyroxine 88 mcg PO DAILY lisinopril 5 mg PO DAILY oxycodone 5 mg PO Q6H PRN HPI Comments Details: 84-year-old female patient presenting for evaluation of a newly diagnosed right breast invasive ductal carcinoma. She was noted to have a asymmetry in the right breast at the superior posterior depth on the initial screening mammogram performed on 03/08/2024. Subsequent additional images performed on 04/19/2024 noted a persistent mass with questioned distortion in the upper outer breast. This was felt to be suspicious for malignancy and stereotactic core biopsy recommended. A stereotactic core biopsy performed on 05/17/2024 was positive for an invasive ductal carcinoma, grade 1, ER/NC positive, HER2 Aryan negative, proliferation index low. She presents today to discuss surgical options. She denies a previous history of breast problems or breast surgery. Her family history is significant for her mother developing breast cancer when she was in her 50s. She underwent a radical mastectomy but subsequently of metastatic disease. She is . Menarche was at age 17 and menopause at age 52. Underwent right breast lumpectomy with localizer and left axillary sentinel node biopsy on 06/25/2024. Pathology revealed invasive carcinoma with lobular and ductal features, grade 1, 16 mm in diameter. 0/2 sentinel lymph nodes were negative for metastatic disease. PT1c, N0 (sn). [facility] Medical History Essential (primary) hypertension Hypothyroidism, unspecified Gastro-esophageal reflux disease without esophagitis Benign paroxysmal vertigo, bilateral Ventricular premature depolarization Unspecified osteoarthritis, unspecified site Tinea corporis Dorsalgia, unspecified Pure hypercholesterolemia, unspecified Surgical History History of lumpectomy of right breast (06/25/24) Hx laparoscopic cholecystectomy H/O colonoscopy Hx of breast biopsy History of lateral meniscus repair of right knee Hx of eye surgery Family History Mother Breast cancer, Onset Age: 55 Bone cancer Father Colon cancer Cirrhosis of liver Brother Lung cancer Skin cancer Social History Household Members: Friend(s) Housing: House Are you a primary career development director to a significant other at home: No Do you presently have visiting nurse or other home services: No Patient Tobacco Use Status: Former Tobacco user Tobacco use type: Cigarette Second Hand Smoke Exposure: No Advance Directives Date on File: 12/28/18 service: No Current occupational status: retired Female Reproductive History Menstrual Age of Menarche: 17 Review of Systems Const All systems reviewed & are unremarkable except as noted in HPI and below Physical Exam Vital Signs: Last Vital Signs Pulse 81 07/06/24 11:54 BP 141/66 H 07/06/24 11:54 BMI result Body Mass Index 29.4 Const General: no acute distress Nutritional Appearance: well nourished Orientation/consciousness: patient oriented x3 Chest Other: Well-healed incision in the right breast at the upper outer quadrant with no underlying hematoma or seroma. No hematoma in the right axilla. Steri-Strips remain in-situ. Skin Other: Warm, dry, no rash Neuro Other: Mobility Assessment: 1. 3 meter assessment time (seconds) 6 2. 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 Pathology confirmed the diagnosis. 0 of 2 sentinel lymph nodes contained metastatic disease. She tolerated the procedure well and her wounds are healing nicely. I recommended she return in 1 month for follow-up breast examination. She should continue to follow up with Dr. Eldridge for further management of this breast cancer. Coding Level of Care Code Global (43502) Diagnoses Invasive ductal carcinoma of right breast C50.911
[2024-07-06 11:54] VITALS: BP 141/66; PULSE 81; BMI 29.4
== END 2024-07-06 11:58 | disposition home or self-care (01) ==
LOC: HO.HGS 11:38
PROVIDERS: PCP Family Medicine; Visit Provider Surgery
DX: C50.911 Malignant neoplasm of unspecified site of right female breast (principal)
CPT/HCPCS: 99024

== ENCOUNTER → 2024-07-06 11:38 | Outpatient (BNVA) | payer MEDICARE, SELFPAY | PROVIDERS: PCP Family Medicine; Visit Provider Surgery | DX: C50.411 Malignant neoplasm of upper-outer quadrant of right female breast (principal) | CPT/HCPCS: 99212 ==

== ENCOUNTER 2024-07-12 10:21 | Outpatient (REF) | payer MEDICARE, SELFPAY ==
[2024-07-12 15:03] LABS: Cholesterol 253 mg/dL (<200); HDL Cholesterol 50 mg/dL (>40); LDL Cholesterol Calculated 169 mg/dL (<100); Triglycerides 170 mg/dL (<150)
== END 2024-07-12 10:22 | disposition home or self-care (01) ==
LOC: HO.10HDL 10:21
PROVIDERS: Visit Provider Family Medicine
DX: E78.00 Pure hypercholesterolemia, unspecified (principal)
CPT/HCPCS: 36415; 80061

== ENCOUNTER 2024-08-03 10:32 | Outpatient (AMB) | payer MEDICARE, SELFPAY ==
--- NOTE | 2024-08-03 10:36 | MHC.OFFVIS ---
Vital Signs 08/03/24 10:55 Weight 180 lb BP 178/77 H Blood Pressure Location Rt brachial Position Sitting Pulse 85 Intake Visit Reasons: s/p (R) breast lump amf )R) axillary SN bx Intake Note: Patient here s/p Rt br lump amf and Rt axilla SN bx on 06-25-2024. Patient c/o: no concerns. Reports incision healed well Engineering Coordinator Required: No Accompanied by: Self / Same As Patient Allergies No Known Allergies Allergy (Verified 08/03/24 10:37) HPI HPI s/p (R) breast lump amf )R) axillary SN bx: Details: Yulissa Nava presents for follow up breast exam. 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 She tolerated the procedure well. She is followed by Dr. Eldridge and was started on letrozole for antiestrogen therapy and she therefore does not need post lumpectomy radiation. She reports feeling very well. She has no pain. She is using her right arm without difficulty. She has no concerns. [facility] Medical History Essential (primary) hypertension Hypothyroidism, unspecified Gastro-esophageal reflux disease without esophagitis Benign paroxysmal vertigo, bilateral Ventricular premature depolarization Unspecified osteoarthritis, unspecified site Tinea corporis Dorsalgia, unspecified Pure hypercholesterolemia, unspecified Surgical History History of lumpectomy of right breast (06/25/24) Hx laparoscopic cholecystectomy H/O colonoscopy Hx of breast biopsy History of lateral meniscus repair of right knee Hx of eye surgery Family History Mother Breast cancer, Onset Age: 55 Bone cancer Father Colon cancer Cirrhosis of liver Brother Lung cancer Skin cancer Social History Household Members: Friend(s) Housing: House Are you a primary care transitions nurse to a significant other at home: No Do you presently have visiting nurse or other home services: No Patient Tobacco Use Status: Former Tobacco user Tobacco use type: Cigarette Second Hand Smoke Exposure: No Advance Directives Date on File: 12/28/18 service: No Current occupational status: retired Female Reproductive History Menstrual Age of Menarche: 17 Review of Systems Const All systems reviewed & are unremarkable except as noted in HPI and below Physical Exam Vital Signs: Last Vital Signs Pulse 85 08/03/24 10:55 BP 178/77 H 08/03/24 10:55 Const General: comfortable, no acute distress and alert Orientation/consciousness: patient oriented x3 Chest Other: right breast with well healed lumpectomy incision, very mild induration, no erythema, no edema, no palpable breast masses, axilla nontender Resp Effort & Inspection: normal respiratory effort Skin General skin exam: no rashes or lesions noted Neuro General: patient oriented x3 and moves all extremities Assessment & Plan Assessment & Plan (1) Invasive ductal carcinoma of right breast: Code(s): C50.911 - Malignant neoplasm of unspecified site of right female breast Category: Medical Plan 84-year-old female patient diagnosed with left 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 She is doing well, wound is well healed, no palpable breast masses. She is followed by Dr. Eldridge and on letrozole for antiestrogen therapy. I recommended she return in 3 months for follow-up breast examination or sooner if needed. Coding Level of Care Code Global (29400) Diagnoses Invasive ductal carcinoma of right breast C50.911
[2024-08-03 10:55] VITALS: BP 178/77; PULSE 85
== END 2024-08-03 11:11 | disposition home or self-care (01) ==
LOC: HO.HGS 10:33
PROVIDERS: PCP Family Medicine; Visit Provider Physician Assistant Surgical
DX: C50.911 Malignant neoplasm of unspecified site of right female breast (principal)
CPT/HCPCS: 99024

== ENCOUNTER → 2024-08-03 10:32 | Outpatient (BNVA) | payer MEDICARE, SELFPAY | PROVIDERS: PCP Family Medicine; Visit Provider Physician Assistant Surgical | DX: C50.411 Malignant neoplasm of upper-outer quadrant of right female breast (principal); Z48.3 Aftercare following surgery for neoplasm | CPT/HCPCS: 99212 ==

== ENCOUNTER 2024-10-30 15:17 | Outpatient (AMB) | payer MEDICARE, SELFPAY ==
[2024-10-30 15:22] VITALS: BP 140/80; PULSE 88; TEMP 37.1; O2SAT 96; BMI 29.0
--- NOTE | 2024-10-30 15:22 | MHC.PC.OV ---
Vital Signs 10/30/24 15:22 Height 5 ft 7 in Weight 185 lb BMI 29.0 BP 140/80 H Blood Pressure Location Rt brachial Position Sitting Pulse 88 Pulse Source Pulse Oximeter Temp 98.7 F Temp Source Temporal Artery Scan Pulse Oximetry (%) 96 Oxygen Delivery Method Room Air Intake Visit Reasons: 3 MON FUP-PATEL- see comments Nitric Acid Concentrator Operator Required: No Accompanied by: Self / Same As Patient Allergies No Known Allergies Allergy (Verified 11/02/24 11:43) Medication List - Last Reconciled 10/30/24 by BASIA Chao benzonatate 100 mg PO TID PRN calcium carbonate-vitamin D3 600 mg-10 mcg (400 unit) (Calcium 600 + D(3)) 1 tab PO BID cimetidine 300 mg PO DAILY famotidine 20 mg PO BID letrozole 2.5 mg PO Q24H levocetirizine 5 mg PO DAILY levothyroxine 88 mcg PO DAILY lisinopril 5 mg PO DAILY Tobacco use date assessed: 10/30/24 Fall risk assessment: No Falls in past year Last assessed Fall Risk: 10/30/24 Dental Screening Dental Screen Date: 10/30/24 Did you have a dental visit in the last 12 months?: Yes Did you have a dental problem in the last 6 months where you did not have access to dental care?: No HPI HPI Comments History of Present Illness Details 84 year old female with back pain, HTN, HLD, Hypothyroidism and GERD who was diagnosed with breast cancer in May. She is followed closely by Oncology and breast surgery. She is on Letrozol. She is on Lisinopril 5mg. Her BP today was 140/80. She states her BP is normal at home. She is on Levothyroxine 88mcg. She is due for TSH. She has been taking Cimetidine for GERD. She states it is expensive but is working well. She has a cough at night with tickle in her throat. She is taking Cetirizine without relief. She states she has been on it for several years. [facility] Medical History (Updated 11/04/24 @ 23:35 by BASIA Chao) Allergic rhinitis Benign paroxysmal vertigo, bilateral Dorsalgia, unspecified Essential (primary) hypertension Gastro-esophageal reflux disease without esophagitis Hypothyroidism, unspecified Pure hypercholesterolemia, unspecified Tinea corporis Unspecified osteoarthritis, unspecified site Ventricular premature depolarization Surgical History H/O colonoscopy (~11/03/18) History of lateral meniscus repair of right knee History of lumpectomy of right breast (06/25/24) Hx laparoscopic cholecystectomy Hx of breast biopsy Hx of eye surgery Family History Mother Breast cancer, Onset Age: 55 Bone cancer Father Colon cancer Cirrhosis of liver Brother Lung cancer Skin cancer Social History Household Members: Friend(s) Housing: House Are you a primary care services manager to a significant other at home: No Do you presently have visiting nurse or other home services: No Patient Tobacco Use Status: Former Tobacco user Tobacco use type: Cigarette e-Cigarette/Vaping Use: Former Use Second Hand Smoke Exposure: No Advance Directives Date on File: 12/28/18 service: No Current occupational status: retired Cognitive needs: No Hearing needs: No Vision needs: Yes (rx glasses) Female Reproductive History Menstrual Age of Menarche: 17 Questionnaire PHQ-9 Over the last 2 weeks, how often have you been bothered by any of the following problems? 1. Little interest or pleasure in doing things: not at all 2. Feeling down, depressed, or hopeless: not at all 3. Trouble falling or staying asleep, or sleeping too much: not at all 4. Feeling tired or having little energy: not at all 5. Poor appetite or overeating: not at all 6. Feeling bad about yourself - or that you are a failure or have let yourself or your family down: not at all 7. Trouble concentrating on things, such as reading the newspaper or watching television: not at all 8. Moving or speaking so slowly that other people could have noticed. Or the opposite - being so fidgety or restless that you have been moving around a lot more than usual: not at all 9. Thoughts that you would be better off or of hurting yourself in some way: not at all Total score: 0 Source: Developed by Drs. Adrian Doe, Elizabeth TreviñoLeonel and colleagues, with an educational rikki from [employer]. Thrive Questionnaire Date Thrive assessed: 10/30/24 I am a: Patient Within the past 12 months, did the food you bought not last and you didn't have the money to get more?: Never true Within the past 12 months, did you worry whether your food would run out before you got money to buy more?: Never true Do you have trouble paying for medicines?: No Do you have trouble getting transportation to medical appointments?: No Do you have trouble paying your heating and electricity bill?: No Do you have trouble taking care of your child, family member or friend?: No Do you have trouble with day-to-day activities such as bathing, preparing meals, shopping, managing finances, etc.?: No Are you currently unemployed and looking for a job?: No Are you interested in more education?: No THRIVE Score: 0 AUDIT C Alcohol Use Questionnaire (AUDIT-C) 1. How often do you have a drink containing alcohol?: Never 3. How often do you have six or more drinks on one occasion?: Never Total Score: 0 JOSÉ MIGUEL-7 AMB Questionnaire JOSÉ MIGUEL-7 Date JOSÉ MIGUEL - 7 assessed: 10/30/24 Feeling nervous, anxious, or on edge: 0 = Not at all Not being able to stop or control worryin = Not at all Worrying too much about different things: 0 = Not at all Trouble relaxin = Not at all Being so restless that it is hard to sit still: 0 = Not at all Becoming easily annoyed or irritable: 0 = Not at all Feeling afraid as if something awful might happen: 0 = Not at all Total JOSÉ MIGUEL-7 score (0-4 normal; 5-9 mild; 10-14 moderate; 15-21 severe): 0 Source: Developed by Drs. Adrian Doe, Leonel Clark and colleagues, with an educational rikki from [employer]. Review of Systems Const Details: CONSTITUTIONAL No weight loss HEAD/NECK Negative EAR/NOSE/MOUTH/THROAT Negative RESPIRATORY Negative CARDIOVASCULAR Negative GASTROINTESTINAL Heartburn controlled NEUROLOGICAL Negative PSYCHIATRIC Negative Physical exam (Primary Care) Vital Signs: Last Vital Signs Temp 98.7 F 10/30/24 15:22 Pulse 88 10/30/24 15:22 BP 140/80 H 09/02/25 15:22 Pulse Ox 96 10/30/24 15:22 Oxygen Delivery Method Room Air 10/30/24 15:22 BMI result Body Mass Index 29.0 GENERAL Well developed, Overweight, in no apparent distress HEENT Head-Normocephalic Eyes- PERRLA, EOMI, Conjuctiva clear, lids WNL Ears- Canals clear, TMs WNL Mouth/Throat-No lesions, no erythema, no exudate Neck- Supple, No lymphadenopathy, thyroid WNL RESPIRATORY Normal I:E, Clear to auscultation CARDIOVASCULAR Regular, rate and rhythm, No murmurs or rubs GASTROINTESTINAL Soft, nontender, normal bowel sounds, no masses NEUROLOGICAL Gait normal PSYCHIATRIC Oriented to person, place and time Mood and affect WNL Appearance WNL Speech WNL Thought processes WNL Tobacco/Smoking Status: Tobacco use Status Tobacco use date assessed 10/30/24 10/30/24 15:23 Patient Tobacco Use Status Former Tobacco user 10/30/24 15:23 Tobacco use type Cigarette 10/30/24 15:23 e-Cigarette/Vaping Use Former Use 10/30/24 15:34 PHQ-9: PHQ-9 Score PHQ-9: Total score 0 10/30/24 17:47 Thrive Assessment: Date of Thrive Assessment Date Thrive assessed 10/30/24 10/30/24 15:23 Coding Level of Care Code New Pt New Pt Level 4 (19502) Patient Type New Diagnoses Hypothyroidism, unspecified E03.9 Invasive ductal carcinoma of right breast C50.911 Non-seasonal allergic rhinitis due to pollen J30.1 Allergic rhinitis trigger: pollen Allergic rhinitis seasonality: non-seasonal Gastro-esophageal reflux disease without esophagitis K21.9 Essential (primary) hypertension I10 Time Spent (min) 35 Comment Time spent on chart review, H&P, placing orders, patient education. Assessment & Plan Assessment & Plan (1) Hypothyroidism, unspecified: Code(s): E03.9 - Hypothyroidism, unspecified Category: Medical Plan: Will check TSH. Will continue Levothyroxine. Patient will continue current medications. Will monitor. Patient will follow up in 3 months. (2) Invasive ductal carcinoma of right breast: Code(s): C50.911 - Malignant neoplasm of unspecified site of right female breast Category: Medical Plan: Will Continue to follow up with Oncology and Breast surgery. (3) Allergic rhinitis: Code(s): J30.9 - Allergic rhinitis, unspecified Category: Medical Qualifiers: Allergic rhinitis trigger: pollen Allergic rhinitis seasonality: non-seasonal Qualified Code(s): J30.1 - Allergic rhinitis due to pollen Plan: Will try Levocetirizine 5mg. Will give Benzonatate for cough. Patient to follow up in 3 months or sooner if symptoms persist or worsen. (4) Gastro-esophageal reflux disease without esophagitis: Code(s): K21.9 - Gastro-esophageal reflux disease without esophagitis Category: Medical Plan: Will change to Famotidine. Patient to follow up in 3 months or sooner if symptoms persist or worsen. (5) Essential (primary) hypertension: Code(s): I10 - Essential (primary) hypertension Category: Medical Plan: Patient to continue on Lisinopril. Will monitor BP at home. Patient to follow up in 3 months or sooner if symptoms persist or worsen. Orders: Orders TSH reflex Free T4 10/30/24 E03.9 - Hypothyroidism, unspecified Medications: New benzonatate 100 mg PO TID PRN 30 caps 0RF cough levocetirizine 5 mg PO DAILY 90 tabs 3RF [address] In place of Cimetidine for acid 20 mg PO BID 180 tabs 2RF
== END 2024-10-30 16:02 | disposition home or self-care (01) ==
LOC: HO.HMCHD 15:18
PROVIDERS: PCP Student in an Organized Health Care Education/Training Program; Visit Provider Physician Assistant Medical
DX: E03.9 Hypothyroidism, unspecified (principal); C50.911 Malignant neoplasm of unspecified site of right female breast; J30.1 Allergic rhinitis due to pollen; K21.9 Gastro-esophageal reflux disease without esophagitis; I10 Essential (primary) hypertension

== ENCOUNTER 2024-10-30 15:17 | Outpatient (REF) | payer MEDICARE, SELFPAY | END 2024-10-30 15:18 | disposition home or self-care (01) | LOC: HO.LAB 15:17 | PROVIDERS: PCP Student in an Organized Health Care Education/Training Program; Visit Provider Physician Assistant Medical | DX: E03.9 Hypothyroidism, unspecified (principal); C50.911 Malignant neoplasm of unspecified site of right female breast; J30.1 Allergic rhinitis due to pollen; K21.9 Gastro-esophageal reflux disease without esophagitis; I10 Essential (primary) hypertension; Z79.890 Hormone replacement therapy; Z79.899 Other long term (current) drug therapy | CPT/HCPCS: 36415; 84443 ==

== ENCOUNTER 2024-11-02 11:24 | Outpatient (AMB) | payer MEDICARE, SELFPAY ==
--- NOTE | 2024-11-02 11:27 | A.OFFVIS_ITS ---
Vital Signs 3 11/02/24 11:42 Height 5 ft 7 in Weight 183 lb BMI 28.7 BP 151/67 H Blood Pressure Location Lt brachial Position Sitting Pulse 87 Intake Visit Reasons: 3m s/p Rt breast lump amf Rt axillary SN Intake Note: Patient is seen in office for 3 month follow up visit, breast exam. 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 She was noted to have an asymmetry in the right breast at the superior posterior depth on screening mammogram performed on 03/08/2024 with additional images on 04/19/2024. Her family history is significant for her mother developing breast cancer when she was in her 50s. She underwent a radical mastectomy but subsequently of metastatic disease. She is . Menarche was at age 17 and menopause at age 52. A stereotactic core biopsy performed on 05/17/2024 was positive for invasive ductal carcinoma, grade 1, ER/OR positive, HER2 Aryan negative with a low proliferation index. She subsequently underwent a right breast lumpectomy with sentinel node biopsy performed on 06/25/2024. Pathology revealed an invasive carcinoma with ductal and lobular features, grade 1, 16 mm in diameter with negative margins (pT1c pN0 (sn)). 0 of 2 sentinel lymph nodes were positive for metastatic disease. Oncotype breast recurrent score of 8. She was evaluated by Dr. Eldridge and chemotherapy felt to be not necessary. She was started on letrozole is tolerating this very well. No radiation therapy is required as well. She feels well and reports that her incision is healed nicely. She denies any significant symptoms in either breast. [facility] Medical History Essential (primary) hypertension Hypothyroidism, unspecified Gastro-esophageal reflux disease without esophagitis Benign paroxysmal vertigo, bilateral Ventricular premature depolarization Unspecified osteoarthritis, unspecified site Tinea corporis Dorsalgia, unspecified Pure hypercholesterolemia, unspecified Surgical History History of lumpectomy of right breast (06/25/24) Hx laparoscopic cholecystectomy H/O colonoscopy (~11/03/18) Hx of breast biopsy History of lateral meniscus repair of right knee Hx of eye surgery Family History Mother Breast cancer, Onset Age: 55 Bone cancer Father Colon cancer Cirrhosis of liver Brother Lung cancer Skin cancer Social History Household Members: Friend(s) Housing: House Are you a primary resident care manager rn to a significant other at home: No Do you presently have visiting nurse or other home services: No Patient Tobacco Use Status: Former Tobacco user Tobacco use type: Cigarette e-Cigarette/Vaping Use: Former Use Second Hand Smoke Exposure: No Advance Directives Date on File: 12/28/18 service: No Current occupational status: retired Cognitive needs: No Hearing needs: No Vision needs: Yes (rx glasses) Female Reproductive History Menstrual Age of Menarche: 17 Review of Systems Const All systems reviewed & are unremarkable except as noted in HPI and below Physical Exam Vital Signs: Last Vital Signs Pulse 87 11/02/24 11:42 BP 151/67 H 11/02/24 11:42 BMI result Body Mass Index 28.7 Const General: comfortable, no acute distress and alert Orientation/consciousness: patient oriented x3 Chest Other: Right breast with well healed lumpectomy incision, no skin redness, hematoma, seroma, palpable mass, new skin change or nipple discharge Left breast: No skin change, nipple discharge, palpable mass or enlarged lymph node Chest/axillae images: 2 1. Well-healed flat incision in the upper outer quadrant right breast with no underlying palpable mass Resp Effort & Inspection: normal respiratory effort Skin General skin exam: no rashes or lesions noted Neuro Other: Mobility Assessment: 1. 3 meter assessment time (seconds) 6 2. Gait observations: Normal balance and gait General: patient oriented x3 and moves all extremities Assessment & Plan Assessment & Plan (1) Invasive ductal carcinoma of right breast: Code(s): C50.911 - Malignant neoplasm of unspecified site of right female breast Category: Medical Plan 84-year-old female patient returning following her recent lumpectomy and sentinel node biopsy right breast for an invasive carcinoma with lobular and ductal features, grade 1, ER/OR positive. She tolerated the procedure well and her wounds are healing nicely. She has currently being treated with letrozole 2.5 mg p.o. q.day.. She will be due for her annual mammogram in February 2025. I recommended follow-up examination in 6 months, sooner PRN. She expressed understanding and agrees with the plan. Coding Level of Care Code Est Pt Level 3 (12151) Complex EM visit Add On G2211 Diagnoses Invasive ductal carcinoma of right breast C50.911
[2024-11-02 11:42] VITALS: BP 151/67; PULSE 87; BMI 28.7
--- OUTSIDE RECORDS SUMMARY | 2024-11-02 12:24 | XMS_ITS | Patient Health Record ---
Author Organization [facility] Address [address] [place] [id number] Care Team Providers Care Sql Database Developer Name Role Phone Pb (RETIRED) Zoran SINGH Primary Care Provider Unavailable Rad Rodrigez Jr Unavailable Allergies Allergen (clinical drug ingredient) Drug/Non Drug Allergy documented on EMR Reaction Allergy Type Onset Date Status trees, grass ,feathers, cats (uncoded) Unknown Allergy Active mildew (uncoded) Unknown Allergy Act cassius mold (uncoded) Unknown Allergy Activ e dust (uncoded) Unknown Allergy Activ e Reason For Referral No Information Medications Medication SIG (Take, Route, Frequency, Duration) Notes Start Date End Date Status Lisinopril 5 MG 1 tablet Orally Once a day Active Famotidine 40 MG 1 tablet as needed Orally Once a day Active Vitamin C 1000 MG 1 tablet Orally Once a day Active Vitamin D3 1000 UNIT 1 capsule Orally On ce a day Active Centrum Silver - as directed Orally o nce a day Active Triple Flex 500-400-125 MG 1 tablet with food Orally Twice a day Active Colyte with Flavor Packs 240 GM As directed Orally Over the specified time. 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 of aspirin (Z79.82) Active confirmed Problem [id number] Long-term use of aspirin therapy (Z79.82) Active confirmed Plan Of Treatment Future Test Test Name Order Date COLONOSCOPY 01/03/2015 COLONOSCOPY 07/12/2018 Insurance Providers Payer Name Payer Address Payer Phone Subscriber Number Group Number Insured Name Patient Relationship to Insured Coverage Start Date Coverage End Date [facility] [address] [place] [phone] [id number] AMANDA ORTIZ Self - patient is the insured Medical (General) History Medical History History ICD Code esophageal reflux elevated cholesterol hypothyroidism hypertension Denies VA,DM,CVA,Lung disease,renal dise ase Surgical History Surgery Date(Month/Year) cateracts 2014 eye lid lift 2012 tonsils 1950 gall bladder 1995
== END 2024-11-02 11:45 | disposition home or self-care (01) ==
LOC: HO.HGS 11:25
PROVIDERS: PCP Family Medicine; Visit Provider Surgery
DX: C50.911 Malignant neoplasm of unspecified site of right female breast (principal)
CPT/HCPCS: 99213; G2211

== ENCOUNTER → 2024-11-02 11:24 | Outpatient (BNVA) | payer MEDICARE, SELFPAY | PROVIDERS: PCP Family Medicine; Visit Provider Surgery | DX: Z98.890 Other specified postprocedural states (principal); C50.911 Malignant neoplasm of unspecified site of right female breast | CPT/HCPCS: 99212 ==

== ENCOUNTER 2024-12-31 15:56 | Outpatient (AMB) | payer MEDICARE, SELFPAY ==
[2024-12-31 10:04] VITALS: BP 140/80; PULSE 82; TEMP 36.4; O2SAT 99; BMI 29.5
--- NOTE | 2024-12-31 10:04 | A.OFFPC_ITS ---
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 Accompanied by: Self / Same As Patient Allergies statin Allergy (Severe, Uncoded 12/31/24 16:10) Unknown clairitin Allergy (Mild, Uncoded 12/31/24 16:10) Headache Medication List - Last Reconciled 01/01/25 by BASIA Chao benzonatate 100 mg PO TID PRN calcium carbonate-vitamin D3 600 mg-10 mcg (400 unit) (Calcium 600 + D(3)) 1 tab PO BID famotidine 20 mg PO BID letrozole 2.5 mg PO Q24H levocetirizine 5 mg PO DAILY levothyroxine 88 mcg PO DAILY lisinopril 5 mg PO DAILY Tobacco use date assessed: 12/31/24 Fall risk assessment: No Falls in past year Last assessed Fall Risk: 12/31/24 Dental Screening Dental Screen Date: 12/31/24 Did you have a dental visit in the last 12 months?: Yes Did you have a dental problem in the last 6 months where you did not have access to dental care?: No HPI HPI Comments History of Present Illness Details 84 year old female with back pain, HTN, HLD, Hypothyroidism and GERD presenting for a follow-up visit for management of chronic conditions and medication review. She has a history of breast cancer and is currently on letrozole for a planned five-year course. Her blood pressure is managed with lisinopril and is considered well-controlled, accounting for white coat hypertension. Her BP today was 140/80. Her hypothyroidism is stable on her current medication regimen, as confirmed by recent thyroid function tests. TSH was 3.02. For allergies, she was switched to levocetirizine and reports it has the same effect on her morning rhinorrhea as her previous medication. However, her chronic cough, which she experienced with the previous medication, has resolved. Her acid reflux symptoms have improved with twice-daily famotidine, which she finds more effective than her previous medication. Recently, the patient was seen at an urgent care for severe coughing and sleeplessness, where she was diagnosed with bronchitis. She was treated with amoxicillin and an albuterol inhaler, which led to a rapid improvement in her symptoms, and she has since recovered. Patient was informed and verbally consented to the use of an ambient scribe for clinic note documentation during this visit. [facility] Medical History Allergic rhinitis Essential (primary) hypertension Hypothyroidism, unspecified Gastro-esophageal reflux disease without esophagitis Benign paroxysmal vertigo, bilateral Ventricular premature depolarization Unspecified osteoarthritis, unspecified site Tinea corporis Dorsalgia, unspecified Pure hypercholesterolemia, unspecified Surgical History History of lumpectomy of right breast (06/25/24) Hx laparoscopic cholecystectomy H/O colonoscopy (~11/03/18) Hx of breast biopsy History of lateral meniscus repair of right knee Hx of eye surgery Family History (Updated 12/31/24 @ 16:14 by Margarita Rocha MA) Mother Breast cancer, Onset Age: 55 Bone cancer Father Colon cancer Cirrhosis of liver Brother Lung cancer Skin cancer Social History Household Members: Friend(s) Housing: House Are you a primary account executive healthcare to a significant other at home: No Do you presently have visiting nurse or other home services: No Patient Tobacco Use Status: Former Tobacco user Tobacco use type: Cigarette e-Cigarette/Vaping Use: Former Use Second Hand Smoke Exposure: No Advance Directives Date on File: 12/28/18 service: No Current occupational status: retired Cognitive needs: No Hearing needs: No Vision needs: Yes (rx glasses) Female Reproductive History Menstrual Age of Menarche: 17 Questionnaire PHQ-9 Over the last 2 weeks, how often have you been bothered by any of the following problems? 1. Little interest or pleasure in doing things: not at all 2. Feeling down, depressed, or hopeless: not at all 3. Trouble falling or staying asleep, or sleeping too much: not at all 4. Feeling tired or having little energy: not at all 5. Poor appetite or overeating: not at all 6. Feeling bad about yourself - or that you are a failure or have let yourself or your family down: not at all 7. Trouble concentrating on things, such as reading the newspaper or watching television: not at all 8. Moving or speaking so slowly that other people could have noticed. Or the opposite - being so fidgety or restless that you have been moving around a lot more than usual: not at all 9. Thoughts that you would be better off or of hurting yourself in some way: not at all Total score: 0 Depression Screening Interpretation: Negative Depression Screening Done: Yes Source: Developed by Drs. Adrian Doe, Elizabeth Treviño, Leonel Benavides and colleagues, with an educational rikki from [employer]. Thrive Questionnaire Date Thrive assessed: 12/31/24 I am a: Patient Within the past 12 months, did the food you bought not last and you didn't have the money to get more?: Never true Within the past 12 months, did you worry whether your food would run out before you got money to buy more?: Never true Do you have trouble paying for medicines?: No Do you have trouble getting transportation to medical appointments?: No Do you have trouble paying your heating and electricity bill?: No Do you have trouble taking care of your child, family member or friend?: No Do you have trouble with day-to-day activities such as bathing, preparing meals, shopping, managing finances, etc.?: No Are you currently unemployed and looking for a job?: No Are you interested in more education?: No THRIVE Score: 0 AUDIT C Alcohol Use Questionnaire (AUDIT-C) 1. How often do you have a drink containing alcohol?: Never 3. How often do you have six or more drinks on one occasion?: Never Total Score: 0 JOSÉ MIGUEL-7 AMB Questionnaire JOSÉ MIGUEL-7 Date JOSÉ MIGUEL - 7 assessed: 12/31/24 Feeling nervous, anxious, or on edge: 0 = Not at all Not being able to stop or control worryin = Not at all Worrying too much about different things: 0 = Not at all Trouble relaxin = Not at all Being so restless that it is hard to sit still: 0 = Not at all Becoming easily annoyed or irritable: 0 = Not at all Feeling afraid as if something awful might happen: 0 = Not at all Total JOSÉ MIGUEL-7 score (0-4 normal; 5-9 mild; 10-14 moderate; 15-21 severe): 0 Source: Developed by Drs. Adrian Doe, Elizabeth Treviño, Leonel Benavides and colleagues, with an educational rikki from [employer]. Review of Systems Narrative - Respiratory: Reports morning rhinorrhea. Denies cough. Reports recent history of severe nocturnal cough associated with bronchitis. - Gastrointestinal: Reports improvement in acid reflux symptoms. - Endocrine: Denies symptoms related to thyroid dysfunction. Physical exam (Primary Care) Vital Signs: Last Vital Signs Temp 97.5 F 12/31/24 10:04 Pulse 82 12/31/24 10:04 BP 140/80 H 12/31/24 10:04 Pulse Ox 99 12/31/24 10:04 Oxygen Delivery Method Room Air 12/31/24 10:04 BMI result Body Mass Index 29.5 GENERAL Well developed, overweight, in no apparent distress HEENT Head-Normocephalic Neck- Supple, No lymphadenopathy, thyroid WNL RESPIRATORY Normal I:E, Clear to auscultation CARDIOVASCULAR Regular, rate and rhythm, No murmurs or rubs GASTROINTESTINAL Soft, nontender, normal bowel sounds, no masses NEUROLOGICAL Gait normal PSYCHIATRIC Oriented to person, place and time Mood and affect WNL Appearance WNL Speech WNL Thought processes WNL Tobacco/Smoking Status: Tobacco use Status Tobacco use date assessed 12/31/24 12/31/24 10:06 Patient Tobacco Use Status Former Tobacco user 12/31/24 10:06 Tobacco use type Cigarette 12/31/24 10:06 e-Cigarette/Vaping Use Former Use 12/31/24 10:06 PHQ-9: PHQ-9 Score PHQ-9: Total score 0 12/31/24 16:11 Depression Screening Interpretation: Negative Thrive Assessment: Date of Thrive Assessment Date Thrive assessed 12/31/24 12/31/24 10:06 Coding Level of Care Code Established Pt Est Pt Level 4 (42742) Patient Type Established Diagnoses Breast cancer, right breast C50.911 Essential (primary) hypertension I10 Acquired hypothyroidism E03.9 Hypothyroidism type: acquired Gastro-esophageal reflux disease without esophagitis K21.9 Non-seasonal allergic rhinitis due to pollen J30.1 Allergic rhinitis trigger: pollen Allergic rhinitis seasonality: non-seasonal Time Spent (min) 30 Comment Time spent on chart review, H&P, patient education and orders. Assessment & Plan Assessment & Plan (1) Breast cancer, right breast: Code(s): C50.911 - Malignant neoplasm of unspecified site of right female breast Category: Medical Plan: The patient is being followed by her oncology team. She will continue taking letrozole as prescribed, with an expected duration of five years. (2) Essential (primary) hypertension: Comment: BP today was 140/80 Code(s): I10 - Essential (primary) hypertension Category: Medical Plan: The patient's blood pressure is slightly elevated in the office, which is attributed to white coat hypertension. Continue lisinopril at the current dose. (3) Hypothyroidism, unspecified: Comment: TSH was 3.02 Code(s): E03.9 - Hypothyroidism, unspecified Category: Medical Qualifiers: Hypothyroidism type: acquired Qualified Code(s): E03.9 - Hypothyroidism, unspecified Plan: Recent thyroid function tests were normal. The patient is on the correct dose of her thyroid medication and should continue with the current regimen. Patient to follow up in 6 months or sooner if needed (4) Gastro-esophageal reflux disease without esophagitis: Code(s): K21.9 - Gastro-esophageal reflux disease without esophagitis Category: Medical Plan: The patient reports her symptoms are well-managed with famotidine twice daily, which she finds more effective than her previous medication. Continue current treatment. (5) Allergic rhinitis: Code(s): J30.9 - Allergic rhinitis, unspecified Category: Medical Qualifiers: Allergic rhinitis trigger: pollen Allergic rhinitis seasonality: non- seasonal Qualified Code(s): J30.1 - Allergic rhinitis due to pollen Plan: The patient's medication was switched to levocetirizine. While her morning rhinorrhea persists, her associated chronic cough has resolved. She will continue with the levocetirizine. Plan I reviewed the patient's ongoing management for her chronic conditions. Her blood pressure remains acceptably controlled on lisinopril, taking into account her white coat hypertension. Her recent thyroid labs were good, indicating her current thyroid medication dose is appropriate. We discussed her allergy medication change to levocetirizine, which has resolved her cough, although morning rhinorrhea is unchanged. She is having good symptom control for her acid reflux with famotidine. I noted she was recently treated for bronchitis at an urgent care facility and has recovered well. Given her stability, we will follow up in six months, unless any issues arise sooner. She will request refills via her pharmacy as needed. Patient Instructions: - Continue taking all your current medications as prescribed, including letrozol e for breast cancer, lisinopril for blood pressure, your thyroid medication, levocetirizine for allergies, and famotidine for acid reflux. - The cough that went away with the new allergy medicine is a good sign, so keep taking it. - When you need medication refills, please contact your pharmacy. They will contact our office if needed. - Your next follow-up appointment is in six months. However, if anything comes up before then, please call the office.
--- OUTSIDE RECORDS SUMMARY | 2024-12-31 16:59 | XMS_ITS | Patient Health Record ---
Author Organization [facility] Address [address] [place] [address] Care Team Providers Care Route Inspector Name Role Phone Pb (RETIRED) Zoran SNIGH Primary Care Provider Unavailable Rad Rodrigez Jr Unavailable [phone] Allergies Allergen (clinical drug ingredient) Drug/Non Drug [...] GM As directed Orally Over the specified time.; Duration: 1 day(s) 07/12/2018 Active Levothyroxine Sodium 88 [...] Problem Status W/U Status Risk Notes Problem Colon cancer screening (368150418) Colon cancer screening (Z12.11) Active confirmed Problem Already on aspirin ([id number]) group home current use of aspirin (Z79.82) Active confirmed Problem Long-term current use of antiplatelet drug ([id number]) Long-term use of aspirin therapy (Z79.82) Active confirmed Plan Of Treatment Future Test Test Name Order Date COLONOSCOPY 01/03/2015 COLONOSCOPY 07/12/2018 Insurance Providers Payer Name Payer Address Payer Phone Subscriber Number Group Number Insured Name Patient Relationship to Insured Coverage Start Date Coverage End Date [facility] [address] [place] [facility] [place]DSON [id number] [phone] [id number] AMANDA ORTIZ Self - patient is the insured Medical (General) History Medical History History ICD Code esophageal reflux elevated cholesterol hypothyroidism hypertension Denies RI,DM,CVA,Lung disease,renal dise ase Surgical History Surgery Date(Month/Year) cateracts 2014 eye lid lift 2012 tonsils 1950 gall bladder 1995
== END 2024-12-31 16:45 | disposition home or self-care (01) ==
LOC: HO.HMCHD 15:57
PROVIDERS: PCP Family Medicine; Visit Provider Physician Assistant Medical
DX: C50.911 Malignant neoplasm of unspecified site of right female breast (principal); I10 Essential (primary) hypertension; E03.9 Hypothyroidism, unspecified; K21.9 Gastro-esophageal reflux disease without esophagitis; J30.1 Allergic rhinitis due to pollen

== ENCOUNTER → 2024-12-31 15:56 | Outpatient (BNVA) | payer MEDICARE, SELFPAY | PROVIDERS: PCP Family Medicine; Visit Provider Physician Assistant Medical | DX: I10 Essential (primary) hypertension (principal); K21.9 Gastro-esophageal reflux disease without esophagitis; E03.9 Hypothyroidism, unspecified; J30.1 Allergic rhinitis due to pollen; C50.911 Malignant neoplasm of unspecified site of right female breast; Z13.31 Encounter for screening for depression; Z13.39 Encounter for screening examination for other mental health and behavioral disorders | CPT/HCPCS: 96127; 99212 ==

== ENCOUNTER 2025-02-12 13:54 | Outpatient (REF) | payer MEDICARE, SELFPAY ==
[2025-02-12 15:24] LABS: Hematocrit 34.8 % (37.0-47.0); Hemoglobin 11.1 g/dl (12.0-16.0); Mean Corpuscular HGB Conc 31.9 g/dl (31.0-35.0); Mean Corpuscular Hemoglobin 28.2 pg (27.0-33.0); Mean Corpuscular Volume 88.5 fL (80.0-98.0); NRBC Abs Auto 0.000 X10*3/uL (0.0-0.012); NRBC Pct Auto 0.0 /100WBC (0.0-0.2); Platelet Count 295 X10*3/uL (160-400); Red Blood Count 3.93 X10*6/uL (4.20-5.50); White Blood Count 6.6 X10*3/uL (4.8-10.8)
[2025-02-12 15:33] LABS: Appearance Urine Clear; Glucose Urine UA Negative (Negative); PH 5.0 (5.0-9.0); Specific Gravity - Urine 1.025 (1.005-1.025); UMIC TRIGGER UACC YES
[2025-02-12 17:02] LABS: Alanine Aminotransferase 98 U/L (0-31); Albumin Level 4.0 g/dL (3.5-5.0); Alkaline Phosphatase 99 U/L (39-117); Anion Gap 13 (12-20); Aspartate Amino Transferase 59 U/L (5-31); Blood Urea Nitrogen 21 mg/dL (9-16); Calcium 9.5 mg/dL (8.4-10.2); Carbon Dioxide 23 mmol/L (22-29); Chloride 107 mmol/L (96-108); Estimated Glomerular Filt Rate 48; Potassium 4.5 mmol/L (3.3-5.1); Sodium 138 mmol/L (135-145); Total Protein 7.2 g/dL (6.5-8.0)
[2025-02-12 18:53] LABS: Free T4 (Free Thyroxine) 0.97 ng/dL (0.71-1.85)
== END 2025-02-12 13:55 | disposition home or self-care (01) ==
LOC: HO.LAB 13:54
PROVIDERS: PCP Physician Assistant Medical; Visit Provider Physician Assistant Medical
DX: R53.83 Other fatigue (principal); E03.9 Hypothyroidism, unspecified; I10 Essential (primary) hypertension
CPT/HCPCS: 36415; 80053; 81001; 84439; 84443; 85027; 96127; 99212

== ENCOUNTER 2025-02-12 13:54 | Outpatient (AMB) | payer MEDICARE, SELFPAY ==
[2025-02-12 14:01] VITALS: BP 130/72; PULSE 79; TEMP 36.3; O2SAT 99; BMI 29.3
--- NOTE | 2025-02-12 14:01 | A.OFFPC_ITS ---
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: No Accompanied by: Self / Same As Patient Allergies statin Allergy (Severe, Uncoded 12/31/24 16:10) Unknown clairitin Allergy (Mild, Uncoded 12/31/24 16:10) Headache Medication List - Last Reconciled 02/17/25 by BASIA Chao calcium carbonate-vitamin D3 600 mg-10 mcg (400 unit) (Calcium 600 + D(3)) 1 tab PO BID famotidine 20 mg PO BID letrozole 2.5 mg PO Q24H levocetirizine 5 mg PO DAILY levothyroxine 88 mcg PO DAILY lisinopril 5 mg PO DAILY Tobacco use date assessed: 02/12/25 Fall risk assessment: No Falls in past year Last assessed Fall Risk: 02/12/25 Dental Screening Dental Screen Date: 02/12/25 Did you have a dental visit in the last 12 months?: Yes Did you have a dental problem in the last 6 months where you did not have access to dental care?: No HPI HPI Comments History of Present Illness Details History of Present Illness The patient is an 85 year old female with back pain, HTN, HLD, Hypothyroidism, history of breast cancer and GERD presenting with lethargy, unsteadiness, and loss of appetite for over a week. She describes the feeling as being wobbly and off-center when walking, requiring her to hold onto furniture for support, but denies dizziness or vertigo. Associated symptoms include a significant loss of appetite and decreased fluid intake, leading to dark brown urine. The patient feels she may be improving, as she was able to eat two small pieces of pizza the previous night. She denies any associated pain or headache. Approximately three days ago, the patient visited an urgent care clinic where tests for COVID-19 and influenza were negative. A urinalysis for a urinary tract infection also showed no abnormalities. The patient denies having a fever, though she recalls one episode of waking up at night feeling that her face was hot, which resolved after applying a cold cloth. She has a cough at times, which she attributes to postnasal drip from allergies. Past medical history is notable for an episode of vertigo in July, which occurred three times. She also has a history of hypothyroidism, managed with medication, and a history of breast cancer discovered on a mammogram. The patient is a former smoker, having quit in the . She is up to date on her vaccinations, including COVID-19, influenza, and shingles shots. Medical History: - Breast Cancer: Diagnosed on a normal m ammogram which showed a small lesion. - Hypothyroidism: Takes medication for t his condition. - Vertigo: Experienced three episodes in July. - Allergies: Reports postnasal drip as a symptom. - Former smoker: Quit in the . Medications: - Thyroid medication: The patient takes an unspecified medication for her thyroid. Family History: - Both parents were smokers. Health Maintenance - Vaccinations: Patient has received COV ID-19, influenza, and shingles shots. - Breast Cancer Screening: History of ma mmogram which detected her breast cancer. Social History - Substance Use: The patient is a former smoker, having quit in the . - Nutritional Intake: The patient report s a recent loss of appetite and decreased fluid intake. - Fluid Intake: She reports being a [facility] water drinker historically but has not been drinking enough recently, leading to dark urine. - Sleep: Reports sleeping a little sagrario r recently, after a period of napping for an hour and a half at night and then getting up. Results - COVID-19 Test: Negative (performed at urgent care ~3 days ago). - Influenza Test: Negative (performed at urgent care ~3 days ago). - Urinalysis: Negative for UTI (performe d at urgent care ~3 days ago). Patient was informed and verbally consented to the use of an ambient scribe for clinic note documentation during this visit. [facility] Medical History (Updated 02/17/25 @ 23:46 by BASIA Chao) Allergic rhinitis Benign paroxysmal vertigo, bilateral Dorsalgia, unspecified Essential (primary) hypertension Fatigue Gastro-esophageal reflux disease without esophagitis Hypothyroidism, unspecified Pure hypercholesterolemia, unspecified Tinea corporis Unspecified osteoarthritis, unspecified site Ventricular premature depolarization Surgical History H/O colonoscopy (~11/03/18) History of lateral meniscus repair of right knee History of lumpectomy of right breast (06/25/24) Hx laparoscopic cholecystectomy Hx of breast biopsy Hx of eye surgery Family History Mother Breast cancer, Onset Age: 55 Bone cancer Father Colon cancer Cirrhosis of liver Brother Lung cancer Skin cancer Social History Household Members: Friend(s) Housing: House Are you a primary home care attendant to a significant other at home: No Do you presently have visiting nurse or other home services: No Patient Tobacco Use Status: Former Tobacco user Tobacco use type: Cigarette e-Cigarette/Vaping Use: Former Use Second Hand Smoke Exposure: No Advance Directives Date on File: 12/28/18 service: No Current occupational status: retired Cognitive needs: No Hearing needs: No Vision needs: Yes (rx glasses) Female Reproductive History Menstrual Age of Menarche: 17 Questionnaire PHQ-9 Over the last 2 weeks, how often have you been bothered by any of the following problems? 1. Little interest or pleasure in doing things: not at all 2. Feeling down, depressed, or hopeless: not at all 3. Trouble falling or staying asleep, or sleeping too much: not at all 4. Feeling tired or having little energy: not at all 5. Poor appetite or overeating: not at all 6. Feeling bad about yourself - or that you are a failure or have let yourself or your family down: not at all 7. Trouble concentrating on things, such as reading the newspaper or watching television: not at all 8. Moving or speaking so slowly that other people could have noticed. Or the opposite - being so fidgety or restless that you have been moving around a lot more than usual: not at all 9. Thoughts that you would be better off or of hurting yourself in some way: not at all Total score: 0 Depression Screening Interpretation: Negative Depression Screening Done: Yes Source: Developed by Drs. Adrian Doe, Elizabeth Treviño, Leonel Benavides and colleagues, with an educational rikki from [employer]. Thrive Questionnaire Date Thrive assessed: 02/12/25 I am a: Patient Within the past 12 months, did the food you bought not last and you didn't have the money to get more?: Never true Within the past 12 months, did you worry whether your food would run out before you got money to buy more?: Never true Do you have trouble paying for medicines?: No Do you have trouble getting transportation to medical appointments?: No Do you have trouble paying your heating and electricity bill?: No Do you have trouble taking care of your child, family member or friend?: No Do you have trouble with day-to-day activities such as bathing, preparing meals, shopping, managing finances, etc.?: No Are you currently unemployed and looking for a job?: No Are you interested in more education?: No THRIVE Score: 0 AUDIT C Alcohol Use Questionnaire (AUDIT-C) 1. How often do you have a drink containing alcohol?: Never 3. How often do you have six or more drinks on one occasion?: Never Total Score: 0 JOSÉ MIGUEL-7 AMB Questionnaire JOSÉ MIGUEL-7 Date JOSÉ MIGUEL - 7 assessed: 02/12/25 Feeling nervous, anxious, or on edge: 0 = Not at all Not being able to stop or control worryin = Not at all Worrying too much about different things: 0 = Not at all Trouble relaxin = Not at all Being so restless that it is hard to sit still: 0 = Not at all Becoming easily annoyed or irritable: 0 = Not at all Feeling afraid as if something awful might happen: 0 = Not at all Total JOSÉ MIGUEL-7 score (0-4 normal; 5-9 mild; 10-14 moderate; 15-21 severe): 0 Source: Developed by Drs. Adrian Doe, Elizabeth Treviño, Leonel Benavides and colleagues, with an educational rikki from [employer]. Review of Systems Narrative Review of Systems - General: Reports feeling lethargic, wobbly, and tired for over a week. - HEENT: Denies headache. - Respiratory: Reports a cough attributed to postnasal drip. - Gastrointestinal: Reports loss of appetite. - Genitourinary: Reports dark brown urine. - Neurological: Reports gait instability/unsteadiness but denies dizziness or vertigo currently. - Psychiatric: Denies depression. - Constitutional: Denies fever, but reports a single episode of feeling hot in her face at night. Physical exam (Primary Care) Vital Signs: Last Vital Signs Temp 97.4 F 02/12/25 14:01 Pulse 79 02/12/25 14:01 BP 130/72 02/12/25 14:01 Pulse Ox 99 02/12/25 14:01 Oxygen Delivery Method Room Air 02/12/25 14:01 BMI result Body Mass Index 29.3 GENERAL Well developed, overweight, in no apparent distress HEENT Head-Normocephalic Neck- Supple, No lymphadenopathy, thyroid WNL RESPIRATORY Normal I:E, Clear to auscultation CARDIOVASCULAR Regular, rate and rhythm, No murmurs or rubs GASTROINTESTINAL Soft, nontender, normal bowel sounds, no masses NEUROLOGICAL Gait normal PSYCHIATRIC Oriented to person, place and time Mood and affect WNL Appearance WNL Speech WNL Thought processes WNL Tobacco/Smoking Status: Tobacco use Status Tobacco use date assessed 02/12/25 02/12/25 14:03 Patient Tobacco Use Status Former Tobacco user 02/12/25 14:03 Tobacco use type Cigarette 02/12/25 14:03 e-Cigarette/Vaping Use Former Use 02/12/25 14:03 PHQ-9: PHQ-9 Score PHQ-9: Total score 0 02/12/25 14:09 Depression Screening Interpretation: Negative Thrive Assessment: Date of Thrive Assessment Date Thrive assessed 02/12/25 02/12/25 14:03 Coding Level of Care Code Established Pt Est Pt Level 4 (85094) Established Pt Add On Problem Visit Only Patient Type Established Diagnoses Essential (primary) hypertension I10 Acquired hypothyroidism E03.9 Hypothyroidism type: acquired Fatigue R53.83 Time Spent (min) 30 Comment Time was spent on chart review, H&P, Patient education and orders Assessment & Plan Assessment & Plan (1) Essential (primary) hypertension: Comment: BP today was 130/72 Code(s): I10 - Essential (primary) hypertension Category: Medical (2) Hypothyroidism, unspecified: Comment: TSH was 3.02 in October Code(s): E03.9 - Hypothyroidism, unspecified Category: Medical Qualifiers: Hypothyroidism type: acquired Qualified Code(s): E03.9 - Hypothyroidism, unspecified (3) Fatigue: Code(s): R53.83 - Other fatigue Category: Medical Plan: Will get labs Plan Plan Patient was informed and verbally consented to the use of an ambient scribe for clinic note documentation during this visit. 1. Generalized Weakness, Ataxia, And Loss Of Appetite The patient's symptoms are nonspecific, and a chest x-ray is deemed unnecessary at this time as the lung exam is clear. To further investigate the cause, blood work, including a complete blood count and thyroid levels, and a urinalysis will be ordered. The patient was instructed to go to the hospital laboratory for collection today. The patient is encouraged to increase her fluid intake, specifically water, and to try to eat more to help improve her energy levels. Will follow up with lab results tomorrow and advise on next steps. Discussion Notes I have discussed with the patient that her symptoms of lethargy, unsteadiness, and poor appetite are concerning, but her physical exam, particularly her lung exam, is reassuring. I explained that a chest x-ray is not necessary at this point, but we need to perform blood tests, including a blood count and thyroid check, and a urine test to rule out other causes. I have strongly recommended that she increase her fluid intake, particularly water, and make an effort to eat more to help rebuild her energy. I informed her that she will need to go to the main hospital lab for the tests and that I will contact her with the results, likely tomorrow, to determine our next steps. We confirmed she has a follow-up appointment scheduled. Patient Instructions - Go to the hospital laboratory to have blood and urine tests done today. - Make sure to drink more fluids, especially water. - Try to eat more to help build your energy level back up. - I will call you with your test results, which should be available tomorrow. Orders: Orders Complete Blood Count no Diff 02/12/25 R53.83 - Other fatigue UA CC w/rflx Micro + Cult 02/12/25 R53.83 - Other fatigue Comprehensive Met. Panel 02/12/25 R53.83 - Other fatigue TSH reflex Free T4 02/12/25 E03.9 - Hypothyroidism, unspecified, R53.83 - Other fatigue
--- OUTSIDE RECORDS SUMMARY | 2025-02-12 18:05 | XMS_ITS | Patient Health Record ---
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 Phone Pb (RETIRED) Zoran SINGH Primary Care Provider Unavailable Rad Rodrigez Jr Unavailable Allergies Allergen (clinical drug ingredient) Drug/Non Drug Allergy documented on EMR Reaction Allergy Type Onset Date Status Dust dust (uncoded) Unknown Allergy Activ e mildew (uncoded) Unknown Allergy Act cassius mold (uncoded) Unknown Allergy Activ e trees, grass ,feathers, cats (uncoded) Unknown Allergy Active Reason For Referral No Information Medications Medication SIG (Take, Route, Frequency, Duration) Notes Start Date End Date Status Lisinopril 5 MG Tablet 1 tablet Orally O nce a day Active Famotidine 40 MG Tablet 1 tablet as need ed Orally Once a day Active Vitamin C 1000 MG Tablet 1 tablet Orally Once a day Active Vitamin D3 1000 UNIT Capsule 1 capsule O rally Once a day Active Centrum Silver - Tablet as directed Oral ly once a day Active Triple Flex 500-400-125 MG Tablet 1 tablet with food Orally Twice a day Active Colyte with Flavor Packs 240 GM Solution Reconstituted As directed Orally Over the specified time.; Duration: 1 day(s) 07/12/2018 Active Levothyroxine Sodium 88 MCG Capsule 1 capsule Orally Once a day Active Aspirin 81 MG Tablet Delayed Release 1 tablet Orally Once a day Active Cetirizine HCl 10 MG Tablet 1 tablet Ora lly Once a day Active Immunizations Vaccine Route Administration Date Status Comme nts Influenza Unknown 12/15/2017 Administered Social History Social History Additional Details Category Social Info Options Details Miscellaneous: Marital status: single Occupation: retired Problems Problem Type SNOMED Code ICD Code Onset Dates Problem Status W/U Status Risk Notes Problem Colon cancer screening (206172700) Colon cancer screening (Z12.11) Active confirmed Problem Already 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 [phone] [id number] AMANDA ORTIZ Self - patient is the insured Medical (General) History Medical History History ICD Code esophageal reflux elevated cholesterol hypothyroidism hypertension Denies [place],DM,CVA,Lung disease,renal dise ase Surgical History Surgery Date(Month/Year) cateracts 2014 eye lid lift 2012 tonsils 1950 gall bladder 1994
== END 2025-02-12 15:48 | disposition home or self-care (01) ==
LOC: HO.HMCHD 13:54
PROVIDERS: PCP Physician Assistant Medical; Visit Provider Physician Assistant Medical
DX: I10 Essential (primary) hypertension (principal); E03.9 Hypothyroidism, unspecified; R53.83 Other fatigue